=== PATIENT | female | born 1935 | race Caucasian/White ===

== ENCOUNTER 2018-03-09 15:19 | Inpatient (IN) ==
[2018-03-09] MEDS ORDERED: ALBUTEROL 2.5mg/3ml (0.083%) NEB AEROSOL PRN (18:56)
[2018-03-09] MEDS ORDERED: FUROSEMIDE 20 MG/2 ML INJECTION IVP ONE (19:00)
[2018-03-09] MEDS ORDERED: MORPHINE SULFATE 2mg INJECTION IVP PRN (19:00)
--- NOTE | 2018-03-09 19:12 | History & Physical Report ---
History of Present Illness Date: 03/09/18 (PCP: Dr. Aster Batres) Chief complaint: Fall, Back pain HPI: Tiffanie is a frail, 82-year-old female who presents today and direct admission from [facility] in [place]. Within the last 6 weeks, she has undergone imaging which did reveal extensive lymphadenopathy and diffuse masses concerning for possible lymphoma. She was referred to Dr. Solis for further evaluation. She underwent biopsy by Dr. Goldsmith at [facility] of an abdominal mass and 03/02/2018. 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 Flow cytometry was negative for lymphoma, but final staining remains pending. Again, patient is here today to be admitted. She reports that she was attempting to change the toilet paper roll at home, and fell off of the toilet. He did hit her head, and her low back. Her was present, and called the daughter to come and help her up. Upon responding, the daughter did decide to call EMS, and she was taken to [facility] in [place] for further evaluation. Lab and CT of the head was done. CT was negative. I do not have labs available to me. Patient does demonstrate ongoing shortness of air, intra-abdominal distention, and overall not doing well. Again, she has been transferred for further evaluation and specialist consultation. Patient reports that overall she has not been feeling well. She has had progressive dyspnea, and her reports that she had severe difficulty breathing last night. She has been using nebulizer treatments more frequently to try to help with her shortness of air. She has had ongoing abdominal swelling. Some intermittent lower extremity edema. She appears fairly cachectic , but her daughter reports that she gained weight in December. Patient has not been eating much, reports eating primarily some mashed potatoes or other small amounts of food. She does endorse a decreased appetite, early satiety, and frequent nausea. She does not specifically endorse vomiting. She does have dysphagia, with feelings of food being stuck immediately in her throat. She also is having difficulty with pill dysphagia, but attributes this to "runs in my family". She denies any history of coronary artery disease or heart failure. She has had multiple surgeries and medical conditions which will be detailed in history of present illness. I did discuss with her her CODE STATUS today. She desires to be a full code. Her and daughter are at bedside, and she and the family reports they believe she may have a DURABLE POWER OF CLASSROOM INSTRUCTOR. I have encouraged her to be sure that she is established that the paperwork has not been done to that effect. Patient is somewhat reluctant, and states "I have always been told that the bad idea". I did discuss the significance of DPOA and that it would only be enacted if she was unable to make her own decisions. I strongly encouraged her, and her family, once again to consider establishing a DURABLE POWER OF CLASSROOM INSTRUCTOR for the patient while she is here. She does indicate that she would like her and her daughter to make decisions for her if she were unable to speak for herself. Review of Systems All systems PM: 10-point ROS was reviewed, no additional remarkable complaints except - Constitutional Constitutional: Present: anorexia, fatigue, malaise, weakness, weight gain. Absent: fever(s), increased appetite - EENMT Mouth/Throat: Present: changes in swallowing - Cardiovascular Cardiovascular: Present: dyspnea on exertion, orthopnea, edema. Absent: chest pain, palpitations Vascular: Present: pedal edema - Respiratory Respiratory: Present: cough, dyspnea, dyspnea on exertion, wheezing, chest congestion - Gastrointestinal Gastrointestinal: Present: abdominal pain, dyspepsia, dysphagia, early satiety, nausea - Musculoskeletal Musculoskeletal: Present: back pain (lumbar back from fall), muscle weakness, myalgias - Neurological Neurological: Present: weakness - Psychiatric Psychiatric: Present: anxiety Past Medical History Medical History Updates: GERD. Hiatal hernia. 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 Low thyroid. Osteoporosis. Arthritis, unspecified. Left lower extremity DVT 15-16 years ago. Inoperable large hiatal hernia. Right spigelian hernia and ventral incisional hernia. Diverticulitis. Multiple negative breast biopsies Surgical History: Cholecystectomy. Sinus surgery. Hysterectomy. Bowel resection, with 21 inches of bowel removal due to diverticulitis. Hernia repair 2011 with mesh placement. Bilateral eyelid resection 2012 Family History: Sr. BRCA Brother liver transplant 2 due to primary liver failure Cousin with similar liver dysfunction Father due to traumatic injury from a fall Mother heart failure Family History: As Above - Social History Smoking status: Never smoker Substance use type: does not use Alcohol intake frequency: does not drink Housing: house Household members: spouse Current occupational status: retired Current residence: Apartment/Private Home Medications Home Medications Medication Instructions Recorded Confirmed Type Albuterol HFA Inhaler [Ventolin 2 puff INH Q6H 03/09/18 03/09/18 History Hfa 90 mcg/actuation] Albuterol Neb (0.083%) [Proventil 1 vial IH Q4-6HPRN PRN 03/09/18 03/09/18 History Neb (0.083%)] Atenolol [Tenormin] 1 tab PO DAILY 03/09/18 03/09/18 History Furosemide [Lasix] 40 mg PO BID 03/09/18 03/09/18 History Gabapentin 300 mg PO QID 03/09/18 03/09/18 History Levothyroxine Tab [Synthroid] 1 tab PO DAILY 03/09/18 03/09/18 History Lovastatin 20 mg PO HS 03/09/18 03/09/18 History Pantoprazole Sodium [Protonix] 1 tab PO ACB 03/09/18 03/09/18 History Potassium Chloride 20 meq PO TID 03/09/18 03/09/18 History Promethazine HCl 25 mg PO Q6H PRN 03/09/18 03/09/18 History Tramadol HCl [Ultram] 50 - 100 mg PO TID PRN 03/09/18 03/09/18 History Warfarin Sodium [Coumadin] 3 mg PO DAILY 03/09/18 03/09/18 History Allergies Allergy/AdvReac Type Severity Reaction Status Date / Time omeprazole Allergy Mild skin rash Verified 03/09/18 19:17 to face polymyxin B Allergy Mild swelling Verified 03/09/18 19:17 to eye Aminoglycosides Allergy Verified 03/09/18 17:31 Anesthetics - Amide Type Allergy Verified 03/09/18 17:31 atorvastatin [From Lipitor] Allergy Verified 03/09/18 17:31 colistin Allergy Verified 03/09/18 17:31 flurbiprofen Allergy Verified 03/09/18 17:31 ondansetron [From Zofran] Allergy Respiratory Verified 03/09/18 17:48 Depression Progestins Allergy Verified 03/09/18 17:31 Proton Pump Inhibitors Allergy Unverified 03/09/18 19:17 salicylates Allergy Unverified 03/09/18 19:17 Hdgfxiu-Eqf-Buj Reductase Allergy Unverified 03/09/18 19:17 Inhibitor tobramycin Allergy Unverified 03/09/18 19:17 trimethoprim Allergy Unverified 03/09/18 19:17 valsartan Allergy passed out Verified 03/09/18 19:17 ARB-Angiotensin Receptor AdvReac Severe passed out Verified 03/09/18 18:50 Antagonist Estrogens AdvReac Severe BLOOD CLOTS Verified 03/09/18 17:31 estrogens, conjugated AdvReac Severe blood clot Verified 03/09/18 19:17 [From Prempro] medroxyprogesterone AdvReac Severe Anorexia Verified 03/09/18 19:17 [From Prempro] lidocaine AdvReac Mild Verified 03/09/18 18:48 NSAIDS (Non-Steroidal AdvReac conflict Verified 03/09/18 19:17 Anti-Inflamma with other meds Opioids-Meperidine and AdvReac Nausea Verified 03/09/18 19:17 Related fentanyl transdermal patch Allergy Uncoded 03/09/18 17:31 polymyxins Allergy Uncoded 03/09/18 17:31 Exam Vital Signs: Temperature 99.3 F 03/09/18 16:49 Pulse Rate 90 03/09/18 18:17 Respiratory Rate 18 03/09/18 16:49 Blood Pressure 145/66 H 03/09/18 16:49 Pulse Oximetry 93 03/09/18 16:49 Telemetry Rhythm: Sinus Rhythm Height/Weight/BMI: Height 1.63 m Weight 73 kg Body Mass Index 27.6 Comments: Gen.: Patient appears chronically ill. She is generally thin with central ascites. She is moderately short of air at rest. Skin is sallow and pale. Head: Atraumatic. I do not appreciate any masses or lesions. Eyes: No scleral icterus. Pupils are reactive. No periorbital bruising. ENT oral mucosa is dry. Neck: Supple. Right carotid fullness. Cardiovascular: S1, S2. Regular rate and rhythm. Rate is controlled. Feet are cool to touch. Pulses are faintly palpable. O2 sats are 98% on room air. Heart rate is controlled in the 90s. Pulmonary: Significantly diminished in the right lung field. Good air flow left lung medellin. Moderate short of air at rest. No crackles or wheezes. Abdomen: Positive anasarca. She does have a palpable right abdominal mass versus hernia. Bowel sounds are very quiet 4 quadrants. Grossly nontender to palpation. Back: Palpated along her spine, there is no paraspinous tenderness, no muscular tension appreciated. She does seem to have some mild scoliosis. deferred Extremities: Hands and feet are cool. She does have good capillary refill. Faint pedal pulses. No mottling is appreciated. Neuro: Grossly intact as tested. She is awake and alert. Psychiatry: Patient is anxious. Results - Labs CBC & Chem 7: 03/09/18 19:19 03/09/18 19:19 Labs: Labs were not available from outlying facility. - Impressions CT abdomen pelvis without contrast 02/11/2018 1. small right pleural effusion and pleural masses within the right lower chest 2. Adenopathy demonstrated within the chest at right cardiophrenic angle within the pericardial fat 3. Large hiatal hernia 4. Adenopathy demonstrated within the mesentery, left external iliac region, left common femoral region, and possibly within hernia adjacent to the bowel in the right lateral pelvis 5. Minimal ascites 6. 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 Flow cytometry is negative for lymphoma. 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 Will assess labs now, as we do not have those performed at outlying facility available. Also assess troponin, BNP now as patient is short of air and demonstrating significant anxiety despite normal O2 sats. Get CT chest abdomen and pelvis due to known malignancy and concern for rapid progression. Will avoid contrast due to underlying chronic kidney disease. Consult Dr. Aceves in the morning for further evaluation as Dr. Solis is out of town. Check CEA now, LDH for baseline. Get EKG. Telemetry. Check Echo in AM. We'll provide Lasix 40 mg IV 1 now. Hold further diuresis until we get labs back. Suspect that she will need ongoing significant IV diuresis due to the significance of anasarca. She is quite short of air, and is asking for oxygen. I do suspect she has significant underlying pleural effusion. Discussed this with nursing staff, will allow oxygen to be given for symptomatic relief. She is quite malnourished. She has been made nothing by mouth tonight until we get her CT scan back. Likely need to add nutritional supplements to help augment her oral intake. Malnutrition is likely worsening her generalized ascites and 3rd spacing. Will provide when necessary Compazine, and she is listing allergy to Zofran. She reports prior history of left lower extremity DVT, and has been on warfarin since then. Unclear if she was tested for clotting disorder, or if this was was provoked or recurrent. We'll check INR now, and further address her warfarin needs in the morning. Hold Warfarin this evening due to fall. CT of the head done in [place] was negative for acute intracranial hemorrhage. Continue PPI for history of GERD, large hiatal hernia. Progressive dysphasia is concerning for increasing hiatal lymphadenopathy. I did discuss code status and DPOA with her. We will need to follow up on this, as I suspect her prognosis is very guarded. D/W nursing staff, Dr. Gomez. Jason Initially planned OBS status, but with extensive anasarca from underlying cancer coupled with DARY/Hyperkalemia and dyspnea/effusion will change to inpatient. Anticipate greater than 2 midnights of care needed. DVT Prophylaxis: SCD's, Coumadin GI Prophylaxis: Protonix Resuscitation Status: Full Code - Time spent with patient Time with patient PN: 70 minutes - Physician Narrative Physician: Sergio Gomez MD Narrative: Date: 03/09/18 Time: 2143 Have independently interviewed and examined pt. Chart reviewed. Case discussed with outlying ED provide and my [employer]IE[employer]SHAL. Care plan developed with my supervision; agree with above. Presents to ED in [place] secondary to fall. Progressively more weak/ debilitated. Oral drive decreased. Increased difficulty swallowing. More SOA with activities. Increased abdominal girth. Recently undergone evaluation of ab mass - not gotten full results back. Complete ROS not able to be done by myself at this time as patient feeling to weak, discomfortable, and voice too weak to talk. Did not allow for further conversation. Lungs: decreased bilaterally CV: regular MSE: awake alert Gen: looks weak and uncomfortabl Plan: Initially planned OBS status, but with extensive anasarca from underlying cancer coupled with DARY/Hyperkalemia and dyspnea/effusion will change to inpatient. Anticipate greater than 2 midnights of care needed. Check CT, concern of possible bowel obstruction secondary to mass. Will consult with ONC for further evaluation/treatment options. Consult with Dr Mckinney - possible EGD secondary to swallow dysfunction. Hold on Coumadin due to potential need for surgical intervention. SCD for DVT prevention. IV Lasix to help with wasting potassium and excess fluid. Hospital Course Summary Disclaimer: The visit summary below is not to be considered part of the above Progress Note. Hospital Course: 03/09/18 Initially planned OBS status, but with extensive anasarca from underlying cancer coupled with DARY/Hyperkalemia and dyspnea/effusion will change to inpatient. Anticipate greater than 2 midnights of care needed. Will assess labs now, as we do not have those performed at outlying facility available. Also assess troponin, BNP now as patient is short of air and demonstrating significant anxiety despite normal O2 sats. Get CT chest abdomen and pelvis due to known malignancy and concern for rapid progression. Will avoid contrast due to underlying chronic kidney disease. Consult Dr. Aceves in the morning for further evaluation as Dr. Solis is out of town. Check CEA now, LDH for baseline. Get EKG. Telemetry. Check Echo in AM. We'll provide Lasix 40 mg IV 1 now. Hold further diuresis until we get labs back. Suspect that she will need ongoing significant IV diuresis due to the significance of anasarca. She is quite short of air, and is asking for oxygen. I do suspect she has significant underlying pleural effusion. Discussed this with nursing staff, will allow oxygen to be given for symptomatic relief. She is quite malnourished. She has been made nothing by mouth tonight until we get her CT scan back. Likely need to add nutritional supplements to help augment her oral intake. Malnutrition is likely worsening her generalized ascites and 3rd spacing. Will provide when necessary Compazine, and she is listing allergy to Zofran. She reports prior history of left lower extremity DVT, and has been on warfarin since then. Unclear if she was tested for clotting disorder, or if this was was provoked or recurrent. We'll check INR now, and further address her warfarin needs in the morning. Hold Warfarin this evening due to fall. CT of the head done in [place] was negative for acute intracranial hemorrhage. Continue PPI for history of GERD, large hiatal hernia. Progressive dysphasia is concerning for increasing hiatal lymphadenopathy. I did discuss code status and DPOA with her. We will need to follow up on this, as I suspect her prognosis is very guarded. Care to return to Dr Batres at time of discharge from [facility].
[2018-03-09] MEDS: PROCHLORPERAZINE 10 MG/2 ML INJECTION IVP PRN (19:43)
[2018-03-09] MEDS: D5-1/2NS 1,000 ML IV SCH (21:01)
[2018-03-09] MEDS: GABAPENTIN 300 MG CAPSULE PO SCH (21:02)
[2018-03-09] MEDS: TRAMADOL 50 MG TABLET PO PRN (21:06)
[2018-03-10] MEDS: TRAMADOL 50 MG TABLET PO PRN ×4 (01:13→23:10)
[2018-03-10] MEDS: FUROSEMIDE 20 MG/2 ML INJECTION IVP SCH ×3 (01:13→18:13)
[2018-03-10] MEDS: PANTOPRAZOLE 40 MG TABLET PO SCH (06:36)
[2018-03-10] MEDS: D5-1/2NS 1,000 ML IV SCH (06:36)
[2018-03-10] MEDS: LEVOTHYROXINE 100 MCG TABLET PO SCH (06:38)
--- NOTE | 2018-03-10 08:15 | General Surgery Consult Note ---
<Marcela Garrett Evgeny - Last Filed: 03/10/18 09:28> Consult date: 03/10/18 Attending Physician: Sergio Gomez MD [facility] Patient Stated Medical History Hypertension Yes Chronic Obstructive Pulmonary Yes Disease (COPD) Other GI Yes: CONSTIPATION, CLUSTER OF CELLS RLQ Hx Renal Disease Yes Osteoarthritis Yes Medications Home Medications Medication Instructions Recorded Confirmed Type Albuterol HFA Inhaler [Ventolin 2 puff INH Q6H 03/09/18 03/09/18 History Hfa 90 mcg/actuation] Albuterol Neb (0.083%) [Proventil 1 vial IH Q4-6HPRN PRN 03/09/18 03/09/18 History Neb (0.083%)] Atenolol [Tenormin] 1 tab PO DAILY 03/09/18 03/09/18 History Furosemide [Lasix] 40 mg PO BID 03/09/18 03/09/18 History Gabapentin 300 mg PO QID 03/09/18 03/09/18 History Levothyroxine Tab [Synthroid] 1 tab PO DAILY 03/09/18 03/09/18 History Lovastatin 20 mg PO HS 03/09/18 03/09/18 History Pantoprazole Sodium [Protonix] 1 tab PO ACB 03/09/18 03/09/18 History Potassium Chloride 20 meq PO TID 03/09/18 03/09/18 History Promethazine HCl 25 mg PO Q6H PRN 03/09/18 03/09/18 History Tramadol HCl [Ultram] 50 - 100 mg PO TID PRN 03/09/18 03/09/18 History Warfarin Sodium [Coumadin] 3 mg PO DAILY 03/09/18 03/09/18 History Allergies Allergy/AdvReac Type Severity Reaction Status Date / Time omeprazole Allergy Mild skin rash Verified 03/09/18 19:17 to face polymyxin B Allergy Mild swelling Verified 03/09/18 19:17 to eye Aminoglycosides Allergy Verified 03/09/18 17:31 Anesthetics - Amide Type Allergy Verified 03/09/18 17:31 atorvastatin [From Lipitor] Allergy Verified 03/09/18 17:31 colistin Allergy Verified 03/09/18 17:31 flurbiprofen Allergy Verified 03/09/18 17:31 ondansetron [From Zofran] Allergy Respiratory Verified 03/09/18 17:48 Depression Progestins Allergy Verified 03/09/18 17:31 Proton Pump Inhibitors Allergy Unverified 03/09/18 19:17 salicylates Allergy Unverified 03/09/18 19:17 Mswtncb-Xmc-Ybh Reductase Allergy Unverified 03/09/18 19:17 Inhibitor tobramycin Allergy Unverified 03/09/18 19:17 trimethoprim Allergy Unverified 03/09/18 19:17 valsartan Allergy passed out Verified 03/09/18 19:17 ARB-Angiotensin Receptor AdvReac Severe passed out Verified 03/09/18 18:50 Antagonist Estrogens AdvReac Severe BLOOD CLOTS Verified 03/09/18 17:31 estrogens, conjugated AdvReac Severe blood clot Verified 03/09/18 19:17 [From Prempro] medroxyprogesterone AdvReac Severe Anorexia Verified 03/09/18 19:17 [From Prempro] lidocaine AdvReac Mild Verified 03/09/18 18:48 NSAIDS (Non-Steroidal AdvReac conflict Verified 03/09/18 19:17 Anti-Inflamma with other meds Opioids-Meperidine and AdvReac Nausea Verified 03/09/18 19:17 Related fentanyl transdermal patch Allergy Uncoded 03/09/18 17:31 polymyxins Allergy Uncoded 03/09/18 17:31 - Vital Signs Last Vital Signs Temp 98.8 F 03/10/18 07:59 Pulse 96 03/10/18 07:59 Resp 18 03/10/18 04:23 BP 129/51 03/10/18 07:59 Pulse Ox 98 03/10/18 07:59 - Laboratory Result Diagrams: 03/10/18 03:59 03/10/18 03:59 General Surgery Results - Results Labs: 03/10/18 03:59 03/10/18 03:59 <Geri North - Last Filed: 03/10/18 14:51> Consult date: 03/10/18 Attending Physician: Sergio Gomez MD [facility] Patient Stated Medical History Hypertension Yes Chronic Obstructive Pulmonary Yes Disease (COPD) Other GI Yes: CONSTIPATION, CLUSTER OF CELLS RLQ Hx Renal Disease Yes Osteoarthritis Yes Medical History Updates: GERD. Hiatal hernia. 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 Low thyroid. Osteoporosis. Arthritis, unspecified. Left lower extremity DVT 15-16 years ago. Inoperable large hiatal hernia. Right spigelian hernia and ventral incisional hernia. Diverticulitis. Multiple negative breast biopsies Surgical History: Cholecystectomy. Sinus surgery. Hysterectomy. Sigmoid colectomy with incidental appendectomy 12/10/04 due to chronic sigmoid diverticulitis, with 30cm of bowel removed. Pathology showed small hyperplastic polyp and tubular adenoma. Colonoscopy 03/06/03 showing moderate sigmoid diverticulosis and scattered colonic diverticula. EGD 12/03/09 showing hiatal hernia and hyperplastic gastric polyp. Hernia repair 2011 with mesh placement. Bilateral eyelid resection 2012 Family History Updates: family history not obtainable - Social History Smoking status: Never smoker Substance use type: does not use Alcohol intake frequency: does not drink Housing: house Household members: spouse Current occupational status: retired Current residence: Apartment/Private Home Review of Systems 10-point ROS: negative except for HPI and the following: - General Additional Comments: Denies fever, sweats, chills - Eyes/Ears/Nose/Throat Additional comments: denies blurry vision - Cardiovascular Additional comments: Denies chest pain - Respiratory Respiratory: Present: difficulty breathing, cough - Gastrointestinal Gastrointestinal: Present: nausea, diarrhea, constipation Additional comments: reports decreased appetite, dysphagia, GERD denies abdominal pain, vomiting - Genitourinary Additional comments: denies dysuria - Musculoskeletal Musculoskeletal: Present: back pain (low) - Neurological Neurological: Present: muscle weakness Additional comments: denies HERNANDEZ - Hematologic/Lymphatic Hematologic/Lymphatic: Present: history of blood clots/DVT/PE - Vital Signs Last Vital Signs Temp 98.8 F 03/10/18 07:59 Pulse 96 03/10/18 07:59 Resp 18 03/10/18 04:23 BP 129/51 03/10/18 07:59 Pulse Ox 98 03/10/18 07:59 - Laboratory Result Diagrams: 03/10/18 03:59 03/10/18 03:59 General Surgery Results - Results Labs: 03/10/18 03:59 03/10/18 03:59 Additional studies: Echo 03/10/18 report pending
--- NOTE | 2018-03-10 08:27 | CT Scan Report ---
Indication: Malignancy, SOA PROCEDURE: CT chest/abd/pelvis wo con: Encounter: Subsequent Comparison: Outside CT abdomen and pelvis dated February 11, 2018 Technique: Axial CT images were performed through the chest, abdomen and pelvis without intravenous contrast. Coronal and sagittal two-dimensional reformats. Automated Exposure Control and Iterative Reconstruction dose reducing techniques were utilized. Findings: Chest: Moderate right pleural effusion with compressive atelectasis of the right lower lobe. 4 mm right upper lobe nodule on #18 is noncalcified. Calcified granuloma in the right middle lobe. Noncalcified right middle lobe nodule inferiorly on axial image #44 measuring 1 cm in diameter. Nodule near the left heart border in the lingula on axial image number 32 measuring 0.8 cm in diameter. Left lower lobe atelectasis with a small left pleural effusion. No pneumothorax. The central airways are patent. No axillary adenopathy. There is anterior mediastinal adenopathy seen with the largest on axial image #25 measuring 2 cm in short axis. Additional lymph nodes in the right cardiophrenic angle measuring up to 2.8 cm in short axis. Heart size is normal. Large posterior diaphragmatic defect with an intrathoracic stomach. Abdomen/pelvis: Evaluation is limited without IV contrast. There is a small amount of perihepatic ascites. The spleen is normal in size. The pancreas are atrophic and fatty replaced with minimal visible pancreatic tissue. Portions of it are herniated into the chest. Right adrenal mass measuring 3.4 cm in diameter with an attenuation of 38 Hounsfield units. Left adrenal gland is grossly normal. The kidneys are unremarkable. There is extensive mesenteric and omental metastatic disease which is difficult to separate from bowel on this study given the lack of oral and IV contrast. There are clustered nodes adjacent to the pyloric region of the stomach. Central mesenteric nodes measure up to 2.6 cm in short axis on axial image #60. Numerous omental nodules are seen in the left ventral abdomen. Previously biopsied nodule is seen within a fat-containing periumbilical hernia. There is a right lower abdominal hernia which contains portions of the colon and additional abnormal soft tissue probably representing mass measuring up to 8.2 cm in diameter. No evidence of a bowel obstruction. Enlarged left inguinal lymph nodes as well. Bladder is normal. Moderate free pelvic fluid partially obscuring the uterus. Surgical clips in the pelvis with anastomosis in the sigmoid colon region. No bowel obstruction. Bone windows show degenerative change in scoliosis in the spine. No obvious lytic or blastic bony lesions. Impression: 1. Extensive metastatic disease with a possible malignant right pleural effusion. Mediastinal, omental, mesenteric and pelvic jessica metastatic disease. 2. Right adrenal mass possibly representing a metastasis. 3. Ascites There is a preliminary report by [facility]. .
[2018-03-10 08:34] VITALS: BMI 27.8
[2018-03-10] MEDS: GABAPENTIN 300 MG CAPSULE PO SCH ×4 (09:33→20:46)
--- NOTE | 2018-03-10 11:58 | Progress Note ---
- Date 03/10/18 Subjective: Tiffanie is seen today in follow-up. She continues to be quite ill. She has informed surgery and the nursing staff that she is planning to dismissal home today. Unfortunately, she is far too ill to do so. Her chart has been reviewed prior to her visit, she requests that I wait to discuss any results with her daughter. I did let her know that her testing was likely consistent with cancer. We are waiting on oncology consultation for further plan of care. Did not discuss the extensiveness of the CT results, or her current lab, she would prefer to wait until her daughter is here for that discussion. She continues to be quite short of air, which she attributes to her chronic hiatal hernia. She reports that she does not want to work with therapy, as it is uncomfortable for her to sit due to fullness" in her lady parts". She reports that she is not eating much. Continues to have early satiety, sensation of dysphagia, etc. she is wearing her oxygen. She does not feel that dyspnea is much improved overnight. She does not report any other acute complaints. I did discuss with nurse, who reports the patient has been intermittently confused. Objective Vital signs: Temperature 98.8 F 03/10/18 07:59 Pulse Rate 96 03/10/18 07:59 Respiratory Rate 18 03/10/18 04:23 Blood Pressure 129/51 03/10/18 07:59 Pulse Oximetry 98 03/10/18 07:59 Height/Weight/BMI: Height 1.63 m Weight 73.4 kg Body Mass Index 27.8 Comments: Gen.: Patient is sleepy, but easily arousable. She does participate in conversation. Drifts off to sleep during our visit today. She is pale with generalized muscle wasting. She continues to appear very ill. Neck: Supple. Cardiovascular: S1, S2. Regular rate and rhythm. Heart tones are mildly diminished. Ongoing abdominal ascites. Minimal lower extremity edema. Pulmonary: Very diminished bilaterally, worse on the right. Faint occasional crackles on the right. Mild to moderate short of air rest, appears stable from yesterday. Abdomen: Distended, soft. Not overtly tender. Palpable mass on the right. Hypoactive bowel sounds 4 quadrants. Extremities: Trace lower extremity edema. Extremities are mildly cool. Back: Patient continues to complain of some low back discomfort. I did not attempt to examine today due to patient's fatigue. Results - Labs CBC & Chem 7: 03/10/18 03:59 03/10/18 03:59 - Impressions ct Impression: 1. Extensive metastatic disease with a possible malignant right pleural effusion. Mediastinal, omental, mesenteric and pelvic jessica metastatic disease. 2. Right adrenal mass possibly representing a metastasis. 3. Ascites There is a preliminary report by [facility]. . 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 Likely GI source. CEA is elevated, LDH is quite elevated. Consult to Dr. Aceves pending. Patient does endorse a history of hysterectomy, but ovaries were left intact. She also endorses a sense of fullness with sitting, unclear if that is mass related or due to ascites. Echo is pending for possible heart failure. Severe malnutrition coupled with intra-abdominal malignancy is also underlying source for ascites. Bilateral pleural effusions ongoing. We could consider a therapeutic tap for comfort if needed. Continue supportive oxygen. Serum potassium is improving, serum creatinine is trending down. Urban was placed due to patient's difficulty and using bedside commode and bedpan. Decrease IV fluids. Continue diuresis to help continue to normalize potassium as well as creatinine. We'll continue to hold warfarin for now telemetry can further determine a plan of care. Use SCDs for DVT prophylaxis. There is concern for possible gastric outlet obstruction, she has a known very large hiatal hernia. Continue PPI. Dr. Jonas has been consulted. Patient may need EGD for further diagnosis. Will be high risk for any sedated procedure. Overall she, she continues to appear very ill. I believe her overall prognosis is likely very grave. She remains a full code at her request. I have encouraged her to establish a medical [employer]. Don't believe that she could safely return home. Her is very frail and elderly, and could not care for her at home. We'll further address when we have a more determine plan of care. DVT Prophylaxis: SCD's GI Prophylaxis: Protonix Resuscitation Status: Full Code - Time spent with patient Time with patient PN: 35 minutes - Physician Narrative Physician: Sergio Gomez MD Narrative: Date: 03/10/18 Time: 1500 Have independently interviewed and examined pt. Chart reviewed. Case discussed with CM, Dr Jonas, Dr Aceves, and my HEALTH INSURANCE AGENT. Care plan developed with my supervision; agree with above. Still feels very rough-tired, weak. Hard to breath. Hard to eat. Does report MS helping her pain. Family at bedside and Dx of extensive cancer given. Pt unsure about how to proceed-reports 'having a hard time thinking logically about this. ' Lungs: decreased, shallow breathing CV: regular AB: soft BS decreased Gen: looks very tired/weak Plan: Discussed with patient/family about findings of extensive cancer. Not seeing much ascitics on CT - family surprised as patient having increased abdominal girth--likely secondary to extensive tumor burden. Does have increasing right pleural effusion (reviewed current and prior CT with Dr Aceves) . Discussed with family that this is from her cancerous process. Discussed how thoracentesis may be helpful in decreasing work of breathing (but not a curative process as effusion would recur). Did review risk vs benefits vs alternatives to thoracentesis. Also discussed possibility of PleurX cath placement. Not able to proceed with either procedure currently as INR 2.01 (2.1 on admit, Coumadin on hold). Pt unable to make decision about this procedure currently-advised decision does not need to be made right now, and can further discuss with family about her wishes. Will give Vit K to help lower INR incase patient would want thoracentesis. Discussed with patient and family that with her extensive cancer burden, cure is not possible. Advised there may be 'palliative' treatments that could potentially slow disease process - in discussion with Dr Aceves, he does not feel overtly optimistic about likelihood of benefit of these modalities. Full discussion on this topic deferred to Dr Parrish. Patient feels MS helpful-advised can increase dose if needed; do want to maintain comfort best as possible. Will add prn lorazepam 0.5mg IV. Discussed about benefits of hospice care. Patient/Family have significant decisions to make. Know will take time for them to process all the information. Hospital Course Summary Disclaimer: The visit summary below is not to be considered part of the above Progress Note. 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 Anticipate greater than 2 midnights of care needed. Will assess labs now, as we do not have those performed at outlying facility available. Also assess troponin, BNP now as patient is short of air and demonstrating significant anxiety despite normal O2 sats. Get CT chest abdomen and pelvis due to known malignancy and concern for rapid progression. Will avoid contrast due to underlying chronic kidney disease. Consult Dr. Aceves in the morning for further evaluation as Dr. Solis is out of town. Check CEA now, LDH for baseline. Get EKG. Telemetry. Check Echo in AM. We'll provide Lasix 40 mg IV 1 now. Hold further diuresis until we get labs back. Suspect that she will need ongoing significant IV diuresis due to the significance of anasarca. She is quite short of air, and is asking for oxygen. I do suspect she has significant underlying pleural effusion. Discussed this with nursing staff, will allow oxygen to be given for symptomatic relief. She is quite malnourished. She has been made nothing by mouth tonight until we get her CT scan back. Likely need to add nutritional supplements to help augment her oral intake. Malnutrition is likely worsening her generalized ascites and 3rd spacing. Will provide when necessary Compazine, and she is listing allergy to Zofran. She reports prior history of left lower extremity DVT, and has been on warfarin since then. Unclear if she was tested for clotting disorder, or if this was was provoked or recurrent. We'll check INR now, and further address her warfarin needs in the morning. Hold Warfarin this evening due to fall and possible surgical procedures. CT of the head done in [place] was negative for acute intracranial hemorrhage. Continue PPI for history of GERD, large hiatal hernia. Progressive dysphasia is concerning for increasing hiatal lymphadenopathy. I did discuss code status and DPOA with her. We will need to follow up on this, as I suspect her prognosis is very guarded. Care to return to Dr Powell at [place] of [place] [facility] [place] 03/10/18 CT obtained yesterday is very concerning for diffuse malignancy. Likely GI source. CEA is elevated, LDH is quite elevated. Consult to Dr. Aceves pending. Only treatment would likely be palliative, and uncertain if even that would be helpful given extensive abdominal tumor burden. Patient does endorse a history of hyst, but ovaries were left intact. She also has sense of fullness with sitting, unclear if that is mass related or due to ascites. Echo is pending for possible heart failure. Severe malnutrition coupled with intra-abdominal malignancy is also underlying source for ascites. Bilateral pleural effusions ongoing. We could consider a therapeutic tap for comfort if needed. Continue supportive oxygen. Serum potassium is improving, serum creatinine is trending down. Urban was placed due to patient's difficulty and using bedside commode and bedpan. Will stop IVF. Continue diuresis to help continue to normalize potassium as well as creatinine. We'll continue to hold warfarin for now telemetry can further determine a plan of care. Use SCDs for DVT prophylaxis. Vitamin K 10mg X1 to low INR due to potential thoracentesis. There is concern for possible gastric outlet obstruction, she has a known very large hiatal hernia. Continue PPI. Dr. Jonas has been consulted. Patient may need EGD for further diagnosis. Will be high risk for any sedated procedure. Discussed about possible thoracentesis for therapeutic purposes. Continue with MS as needed for pain. Will add lorazepam as needed. Overall she, she continues to appear very ill. I believe her overall prognosis is likely very grave. She remains a full code at her request. Have encouraged her to establish a medical [employer]. Don't believe that she could safely return home. Her is very frail and elderly, and could not care for her at home. We'll further address when we have a more determine plan of care.
[2018-03-10] MEDS: MORPHINE SULFATE 4mg INJECTION IVP PRN ×2 (12:55→20:46)
--- NOTE | 2018-03-10 13:45 | Consult Note ---
<Nanda Hernandez - Last Filed: 03/10/18 15:06> Oncology HPI - Data of Consult Patient: new to practice Consult date: 03/10/18 Requesting Physician: Sergio Gomez MD Primary Care Provider: Aster Batres MD - Consult Narrative Reason for consult: ? bowel obstruction secondary to mass History of present illness: 82-year-old female with new onset lymphadenopathy, abdominal pain, decreased appetite was seen by Dr. Solis as new patient 02/16/18. Extensive lymphadenopathy noted, highly suggestive of lymphoma. Was receommended to have a biopsy; superficial mesenteric lymph node biopsy 03/02/18. At time of admission to [facility] we were awaiting results of biopsy. Patient continued to have increased weakness and suffered a fall at home where she hit her head. She was taken to [facility] in [place] for further evaluation, CT of the head was negative for acute findings. With generalized weakness, increased dyspnea and shortness of air, patient was admitted to [facility], then transferred to [facility] for continued care/ further evaluation/workup of likely metastatic disease. At time of intake, patient is reclining in hospital bed, is at bedside. Had recently spoken to Dr. Aceves and was given the preliminary diagnosis of extensive metastatic carcinoma; further testing is pending to determine origin. Patient drowsy/had recently taken morphine for abd. pain. Continues to have intermittent SOA, chest tightness, abdominal/chest wall pain. Poor appetite. Review of Systems - Constitutional Constitutional: Present: fatigue, malaise, weakness - EENT Eyes: Absent: diplopia Mouth/Throat: Present: changes in swallowing - Cardiovascular Cardiovascular: Present: dyspnea on exertion - Respiratory Respiratory: Present: cough, dyspnea, dyspnea on exertion - Gastrointestinal Gastrointestinal: Present: early satiety, nausea - Genitourinary Genitourinary: Present: other (sumner) - Musculoskeletal Musculoskeletal: Present: back pain, muscle weakness, other (chronic arthritic pain) - Neurological Neurological: Present: weakness. Absent: confusion - Psychiatric Psychiatric: Absent: anxiety, depression - Endocrine Endocrine: Absent: cold intolerance, flushing, heat intolerance PFSH Patient Stated Medical History Hypertension Yes Chronic Obstructive Pulmonary Yes Disease (COPD) Other GI Yes: CONSTIPATION, CLUSTER OF CELLS RLQ Hx Renal Disease Yes Osteoarthritis Yes Medical History Updates: GERD. Hiatal hernia. Chronic kidney disease, monogram maker:none. Low thyroid. Osteoporosis. Arthritis, unspecified. Left lower extremity DVT 15-16 years ago. Inoperable large hiatal hernia. Right spigelian hernia and ventral incisional hernia. Diverticulitis. Multiple negative breast biopsies Surgical History: Cholecystectomy. Sinus surgery. Hysterectomy. Sigmoid colectomy with incidental appendectomy 12/10/04 due to chronic sigmoid diverticulitis, with 30cm of bowel removed. Pathology showed small hyperplastic polyp and tubular adenoma. Colonoscopy 03/06/03 showing moderate sigmoid diverticulosis and scattered colonic diverticula. EGD 12/03/09 showing hiatal hernia and hyperplastic gastric polyp. Hernia repair 2011 with mesh placement. Bilateral eyelid resection 2012 - Social History Smoking status: Never smoker Substance use type: does not use Alcohol intake frequency: does not drink Housing: house Household members: spouse Current occupational status: retired Current residence: Apartment/Private Home Medications Home Medications Medication Instructions Recorded Confirmed Type Albuterol HFA Inhaler [Ventolin 2 puff INH Q6H 03/09/18 03/09/18 History Hfa 90 mcg/actuation] Albuterol Neb (0.083%) [Proventil 1 vial IH Q4-6HPRN PRN 03/09/18 03/09/18 History Neb (0.083%)] Atenolol [Tenormin] 1 tab PO DAILY 03/09/18 03/09/18 History Furosemide [Lasix] 40 mg PO BID 03/09/18 03/09/18 History Gabapentin 300 mg PO QID 03/09/18 03/09/18 History Levothyroxine Tab [Synthroid] 1 tab PO DAILY 03/09/18 03/09/18 History Lovastatin 20 mg PO HS 03/09/18 03/09/18 History Pantoprazole Sodium [Protonix] 1 tab PO ACB 03/09/18 03/09/18 History Potassium Chloride 20 meq PO TID 03/09/18 03/09/18 History Promethazine HCl 25 mg PO Q6H PRN 03/09/18 03/09/18 History Tramadol HCl [Ultram] 50 - 100 mg PO TID PRN 03/09/18 03/09/18 History Warfarin Sodium [Coumadin] 3 mg PO DAILY 06/13/18 06/13/18 History Allergies Allergy/AdvReac Type Severity Reaction Status Date / Time omeprazole Allergy Mild skin rash Verified 03/09/18 19:17 to face polymyxin B Allergy Mild swelling Verified 03/09/18 19:17 to eye Aminoglycosides Allergy Verified 03/09/18 17:31 Anesthetics - Amide Type Allergy Verified 03/09/18 17:31 atorvastatin [From Lipitor] Allergy Verified 03/09/18 17:31 colistin Allergy Verified 03/09/18 17:31 flurbiprofen Allergy Verified 03/09/18 17:31 ondansetron [From Zofran] Allergy Respiratory Verified 03/09/18 17:48 Depression Progestins Allergy Verified 03/09/18 17:31 Proton Pump Inhibitors Allergy Unverified 03/09/18 19:17 salicylates Allergy Unverified 03/09/18 19:17 Thohjnm-Cmh-Akt Reductase Allergy Unverified 03/09/18 19:17 Inhibitor tobramycin Allergy Unverified 03/09/18 19:17 trimethoprim Allergy Unverified 03/09/18 19:17 valsartan Allergy passed out Verified 03/09/18 19:17 ARB-Angiotensin Receptor AdvReac Severe passed out Verified 03/09/18 18:50 Antagonist Estrogens AdvReac Severe BLOOD CLOTS Verified 03/09/18 17:31 estrogens, conjugated AdvReac Severe blood clot Verified 03/09/18 19:17 [From Prempro] medroxyprogesterone AdvReac Severe Anorexia Verified 03/09/18 19:17 [From Prempro] lidocaine AdvReac Mild Verified 03/09/18 18:48 NSAIDS (Non-Steroidal AdvReac conflict Verified 03/09/18 19:17 Anti-Inflamma with other meds Opioids-Meperidine and AdvReac Nausea Verified 03/09/18 19:17 Related fentanyl transdermal patch Allergy Uncoded 03/09/18 17:31 polymyxins Allergy Uncoded 03/09/18 17:31 Exam Vital signs: Temperature 98.1 F 03/10/18 12:00 Pulse Rate 105 H 03/10/18 12:00 Respiratory Rate 18 03/10/18 04:23 Blood Pressure 151/69 H 03/10/18 12:00 Pulse Oximetry 99 03/10/18 12:00 - Constitutional no acute distress, well nourished, well developed, other (appears frail) - Routine HEENT Exam Head: Present: normocephalic Eye: Present: EOMI ENT: Present: mucous membranes dry - Routine Neck Exam Present: supple. Absent: lymphadenopathy - Routine Respiratory Exam Present: decreased breath sounds. Absent: wheezes, crackles - Routine Cardiovascular Exam Present: RRR, no murmur - Routine Abdominal Exam Present: soft, distended. Absent: tenderness - Routine Extremities Exam Present: no edema - Routine Skin Exam Present: intact, dry, pallor - Routine Neurological Exam Present: alert (drowsy) - Routine Psychiatric Exam Present: normal affect, cooperative Oncology Results - Labs CBC & Chem 7: 03/10/18 03:59 03/10/18 03:59 Labs: Short CBC 03/09/18 03/09/18 03/10/18 Range/Units 19:19 23:37 03:59 WBC 10.6 12.2 H (4.5-11.0) T/MM3 Hgb 10.6 L 10.3 L 10.1 L (12-16) GM/DL Hct 33.3 L 32.0 L 32.4 L (36-46) % Plt Count 235 241 (130-400) T/MM3 BMP 03/09/18 03/09/18 03/10/18 19:19 23:37 03:59 Sodium 137 135 L 135 L Potassium 5.6 H 5.1 H 5.0 Chloride 99 97 L 96 L Carbon Dioxide 29 28 28 BUN 42.0 H 44.0 H 43.0 H Creatinine 1.9 H 1.8 H 1.7 H Glucose 85 101 104 Calcium 8.7 8.1 L 8.2 L Cardiac Enzymes 03/09/18 03/09/18 03/10/18 Range/Units 19:19 23:37 03:59 Troponin I < 0.012 < 0.012 < 0.012 (0-0.12) ng/ml Liver Function 03/09/18 03/10/18 Range/Units 19:19 03:59 Total Bilirubin 0.80 0.80 (0.20-1.30) MG/DL AST 91 H 86 H (14-36) U/L ALT 10 9 (1-35) U/L Alkaline Phosphatase 92 82 (38-126) U/L Albumin 3.4 L 3.1 L (3.5-5.0) g/dL Urine 03/09/18 Range/Units 20:15 Urine Color Yellow (YELLOW) Urine Clarity Clear Urine pH 6.5 (5.0-8.0) Ur Specific [place] <=1.005 L (1.015-1.025) Urine Protein Negative (NEGATIVE) Urine Glucose (UA) Negative (NEGATIVE) - Impressions Date of Exam: 03/09/18 Ordering Provider: Angelic Reddy APRN Type of Exam(s): CT chest/abd/pelvis wo con Reason for Exam(s): Malignancy, SOA Indication: Malignancy, SOA PROCEDURE: CT chest/abd/pelvis wo con: Encounter: Subsequent Comparison: Outside CT abdomen and pelvis dated February 11, 2018 Technique: Axial CT images were performed through the chest, abdomen and pelvis without intravenous contrast. Coronal and sagittal two-dimensional reformats. Automated Exposure Control and Iterative Reconstruction dose reducing techniques were utilized. Findings: Chest: Moderate right pleural effusion with compressive atelectasis of the right lower lobe. 4 mm right upper lobe nodule on #18 is noncalcified. Calcified granuloma in the right middle lobe. Noncalcified right middle lobe nodule inferiorly on axial image #44 measuring 1 cm in diameter. Nodule near the left heart border in the lingula on axial image number 32 measuring 0.8 cm in diameter. Left lower lobe atelectasis with a small left pleural effusion. No pneumothorax. The central airways are patent. No axillary adenopathy. There is anterior mediastinal adenopathy seen with the largest on axial image #25 measuring 2 cm in short axis. Additional lymph nodes in the right cardiophrenic angle measuring up to 2.8 cm in short axis. Heart size is normal. Large posterior diaphragmatic defect with an intrathoracic stomach. Abdomen/pelvis: Evaluation is limited without IV contrast. There is a small amount of perihepatic ascites. The spleen is normal in size. The pancreas are atrophic and fatty replaced with minimal visible pancreatic tissue. Portions of it are herniated into the chest. Right adrenal mass measuring 3.4 cm in diameter with an attenuation of 38 Hounsfield units. Left adrenal gland is grossly normal. The kidneys are unremarkable. There is extensive mesenteric and omental metastatic disease which is difficult to separate from bowel on this study given the lack of oral and IV contrast. There are clustered nodes adjacent to the pyloric region of the stomach. Central mesenteric nodes measure up to 2.6 cm in short axis on axial image #60. Numerous omental nodules are seen in the left ventral abdomen. Previously biopsied nodule is seen within a fat-containing periumbilical hernia. There is a right lower abdominal hernia which contains portions of the colon and additional abnormal soft tissue probably representing mass measuring up to 8.2 cm in diameter. No evidence of a bowel obstruction. Enlarged left inguinal lymph nodes as well. Bladder is normal. Moderate free pelvic fluid partially obscuring the uterus. Surgical clips in the pelvis with anastomosis in the sigmoid colon region. No bowel obstruction. Bone windows show degenerative change in scoliosis in the spine. No obvious lytic or blastic bony lesions. Impression: 1. Extensive metastatic disease with a possible malignant right pleural effusion. Mediastinal, omental, mesenteric and pelvic jessica metastatic disease. 2. Right adrenal mass possibly representing a metastasis. 3. Ascites There is a preliminary report by [employer]. . Assessment and Plan Assessment and Plan: 1. Mesenteric lymph node biopsy shows extensive, metastatic, poorly differentiated carcinoma of undetermined origin. CT of chest abdomen pelvis shows extensive metastatic disease with likely malignant pleural effusion, mediastinal, omental, mesenteric, and prep pelvic jessica metastatic disease. Also shows right adrenal mass, likely representing a metastasis. 2. 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 Aceves has briefly visited with patient, , and daughter about diagnosis. Awaiting further tissue and pathologic information for determination of origin and discuss possible treatment options. CEA, CA 199, CA 125, LDH added to today's labs. Continue supportive care. Consideration for thoracentesis. <Manny Aceves - Last Filed: 03/10/18 19:59> Oncology HPI - Data of Consult Requesting Physician: Sergio Gomez MD Primary Care Provider: Aster Batres MD [facility] Patient Stated Medical History Hypertension Yes Chronic Obstructive Pulmonary Yes Disease (COPD) Other GI Yes: CONSTIPATION, CLUSTER OF CELLS RLQ Hx Renal Disease Yes Osteoarthritis Yes Exam Vital signs: Temperature 97.7 F 03/10/18 19:27 Pulse Rate 93 03/10/18 19:27 Respiratory Rate 20 03/10/18 19:27 Blood Pressure 135/59 03/10/18 19:27 Pulse Oximetry 95 03/10/18 19:27 Oncology Results - Labs CBC & Chem 7: 03/10/18 03:59 03/10/18 03:59 Labs: Short CBC 03/09/18 03/10/18 Range/Units 23:37 03:59 WBC 12.2 H (4.5-11.0) T/MM3 Hgb 10.3 L 10.1 L (12-16) GM/DL Hct 32.0 L 32.4 L (36-46) % Plt Count 241 (130-400) T/MM3 BMP 03/09/18 03/10/18 23:37 03:59 Sodium 135 L 135 L Potassium 5.1 H 5.0 Chloride 97 L 96 L Carbon Dioxide 28 28 BUN 44.0 H 43.0 H Creatinine 1.8 H 1.7 H Glucose 101 104 Calcium 8.1 L 8.2 L Cardiac Enzymes 03/09/18 03/10/18 Range/Units 23:37 03:59 Troponin I < 0.012 < 0.012 (0-0.12) ng/ml Liver Function 03/10/18 Range/Units 03:59 Total Bilirubin 0.80 (0.20-1.30) MG/DL AST 86 H (14-36) U/L ALT 9 (1-35) U/L Alkaline Phosphatase 82 (38-126) U/L Albumin 3.1 L (3.5-5.0) g/dL Urine 03/09/18 Range/Units 20:15 Urine Color Yellow (YELLOW) Urine Clarity Clear Urine pH 6.5 (5.0-8.0) Ur Specific [place] <=1.005 L (1.015-1.025) Urine Protein Negative (NEGATIVE) Urine Glucose (UA) Negative (NEGATIVE) Assessment and Plan Assessment and Plan: Patient examined, chart reviewed, reviewed pathology with patient, , daughter. LDH markedly elevated. CT scans reviewed and show extensive lymphadenopathy and metastatic disease. This is a stage for malignancy and a poor performance status patient. 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 Responsiveness of this to chemotherapy is in the 30% range. But with her performance status I feel that treatment would be very difficult and not be successful. Discussed these findings with the patient's and daughter. Discussed resuscitation status and asked that they continue to discuss these items with Dr. Gomez. Consider thoracentesis for palliation of symptoms will continue to follow patient with you
[2018-03-10] MEDS ORDERED: PHYTONADIONE (Adult) INJ 10 MG in NS 50 ML IV ONE (14:56)
--- NOTE | 2018-03-10 17:57 | Consultation ---
DATE OF SERVICE 03/10/2018 FINDINGS Mrs. Mayberry is an 82-year-old female whom I was asked to see today as a result of an abnormal CT scan, history for widely metastatic cancer, right pleural effusion. Fortunately, the patient's daughter and came to the room at the end of the examination process and were able to provide more additional information. Mrs. Mayberry has been declining in her overall health for the last year or more per the daughter's report. They have in the past contributed this to her "hiatal hernia." Apparently she has been having some problems with eating and abdominal discomfort for an extended period of time. The family has contributed this to a hiatal hernia. Daughter states that the patient continues to decline and has been requiring definitely more assistance at home. Daughter states that she spends the majority of time at her parents' home providing care. Apparently the patient had gone to the restroom and was standing, trying to "replace the toilet paper" while holding onto a rail, and had subsequently fallen. The patient was brought in to [facility] and subsequently transferred to our facility. The patient's daughter informs me that she has seen Oncology recently as a result of a markedly abnormal CT scan that revealed probable lymphoma. Patient states that they have now discovered that she does not have lymphoma but likely has an adenocarcinoma which has originated from the GI tract. Upon questioning the patient she denied severe pain. Apparently the patient does become quite short of breath with exertion but denies shortness of breath will rest. PAST MEDICAL HISTORY, PAST SURGICAL HISTORY, MEDICATIONS, ALLERGIES, SOCIAL HISTORY, FAMILY HISTORY, REVIEW OF SYSTEMS Will be performed by my nurse practitioner, Jeffrey Garrett APRN. PHYSICAL EXAM GENERAL: Mrs. Mayberry is an 82-year-old cachetic female who appears quite frail and older than her stated age. VITAL SIGNS: Temperature 98.1, pulse 103, blood pressure 151/69, SAO2 99% on 1.5 L/nasal cannula. HEENT: Normocephalic. Pupils are equally round and react to light and accommodation. CHEST: The patient was found to have a large right pleural effusion and one could appreciate some diminished breath sounds on the right. There were rales noted bilaterally upon auscultation. HEART: Regular rate and rhythm. No murmur auscultated. ABDOMEN: Soft, nontender. No evidence for guarding or rebound. EXTREMITIES: Without clubbing, cyanosis, or edema. NEURO: Cranial nerves II-XII grossly intact. Patient is without focal motor or sensory deficits. LABORATORY/RADIOGRAPHIC EVALUATION The patient had a CBC and her white count was 12.2. Hemoglobin is 10.1. Patient is on Coumadin and her INR was 2.01. CMP was obtained and found to be without marked abnormalities. The patient did undergo a CT scan of her chest, abdomen, and pelvis. She was found to have extensive metastatic disease with a probable malignant right pleural effusion. There was mediastinal, omental, mesenteric and pelvic jessica metastatic disease. She was found have ascites. She was found to have a right adrenal mass, likely representing metastasis. I reviewed pathology report from March 02, 2018 in regards to a biopsy of a superficial mesenteric lymph node. This did reveal poorly differentiated carcinoma. There was no morphologic or flow cytometry evidence for lymphoma. ASSESSMENT 82-year-old female with extensive metastatic disease secondary to poorly differentiated carcinoma. Patient likely at end stage of life. Patient with significant associated medical comorbidities. PLAN I informed the patient and her family members who were present, including her and daughter, that I would not recommend intervening with any invasive testing or interventions at this time. I would recommend focusing on palliation and proceeding with hospice consult. In regards to her right pleural effusion I would not recommend thoracentesis unless she would become significantly short of breath at rest. It is my intuition that her pleural effusion will likely reaccumulate fairly quickly following thoracentesis. Currently her breathing is not labored with minimal amount of supplemental oxygen. The patient herself informed me that she agrees with my recommendation and would like to focus on comfort care. RAMONAD
--- NOTE | 2018-03-10 18:27 | Echocardiogram ---
DATE OF PROCEDURE March 10, 2018 This is a two-dimensional echo with spectral Doppler, color-flow and M-mode. It was obtained in a patient with shortness of breath and edema. Left atrial dimension is normal. Left ventricular end-diastolic dimension is normal. Left ventricular wall thickness is normal. LV systolic function is hyperdynamic with ejection fraction of about 75%-80%. Right atrium is normal. Right ventricle is normal. Aortic root dimension is normal. Mitral valve annulus is calcified. Mitral valve leaflets are normal with trace of mitral regurgitation. Aortic valve shows fibrocalcific changes with no stenosis. Moderate aortic insufficiency is present. Tricuspid valve shows moderate-to- severe tricuspid regurgitation with moderate pulmonary hypertension with estimated pulmonary artery systolic pressure of 54. Pulmonary valve shows no pulmonary insufficiency. There is no pericardial effusion. IMPRESSION 1. Hyperdynamic left ventricle with ejection fraction of about 75%-80%. 2. Mitral annulus calcification with trace of mitral regurgitation. 3. Aortic sclerosis with moderate aortic insufficiency. 4. [id number] tricuspid regurgitation with moderate pulmonary hypertension with estimated pulmonary artery systolic pressure of 54. MTDD
[2018-03-10] MEDS: ALBUTEROL 2.5mg/3ml (0.083%) NEB AEROSOL PRN (21:22)
[2018-03-11] MEDS: FUROSEMIDE 20 MG/2 ML INJECTION IVP SCH ×2 (00:16→09:44)
[2018-03-11] MEDS: LEVOTHYROXINE 100 MCG TABLET PO SCH (06:35)
[2018-03-11] MEDS: PANTOPRAZOLE 40 MG TABLET PO SCH (06:35)
[2018-03-11] MEDS: SALINE FLUSH 10ml SYRINGE IV PRN ×4 (06:37→16:42)
--- NOTE | 2018-03-11 07:47 | General Surgery Consult Note ---
Consult date: 03/11/18 Attending Physician: Sergio Gomez MD [facility] Patient Stated Medical History Medical History Updates: GERD. large Hiatal hernia. 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 Hypothyroid. Osteoporosis. Arthritis, unspecified. Left lower extremity DVT 15-16 years ago. Inoperable large hiatal hernia. Right spigelian hernia and ventral incisional hernia. Diverticulitis. Multiple negative breast biopsies Surgical History: ECHO IMPRESSION. 1. Hyperdynamic left ventricle with ejection fraction of about 75%-80%. 2. Mitral annulus calcification with trace of mitral regurgitation. 3. Aortic sclerosis with moderate aortic insufficiency. 4. Oposrwxc-dz-rgpyhe tricuspid regurgitation with moderate pulmonary hypertension with estimated pulmonary artery systolic pressure of 54. 03/10/2018 Amirani. Radiologic needle biopsy abd mass 03/02/2018. Cholecystectomy. Sinus surgery. Hysterectomy. Sigmoid colectomy with incidental appendectomy 12/10/04 due to chronic sigmoid diverticulitis, with 30cm of bowel removed. Pathology showed small hyperplastic polyp and tubular adenoma. Colonoscopy 03/06/03 showing moderate sigmoid diverticulosis and scattered colonic diverticula. EGD 12/03/09 showing hiatal hernia and hyperplastic gastric polyp. Spegalian Hernia repair 2011 with mesh placement. Bilateral eyelid resection 2012. Breast biopsy Family History Updates: Sr. BRCA. Brother liver transplant 2 due to primary liver failure. Cousin with similar liver dysfunction. Father due to traumatic injury from a fall. Mother heart failure - Social History Smoking status: Never smoker Substance use type: does not use Alcohol intake frequency: does not drink Housing: house Household members: spouse Current occupational status: retired Current residence: Apartment/Private Home Medications Home Medications Medication Instructions Recorded Confirmed Type Albuterol HFA Inhaler [Ventolin 2 puff INH Q6H 03/09/18 03/09/18 History Hfa 90 mcg/actuation] Albuterol Neb (0.083%) [Proventil 1 vial IH Q4-6HPRN PRN 03/09/18 03/09/18 History Neb (0.083%)] Atenolol [Tenormin] 1 tab PO DAILY 03/09/18 03/09/18 History Furosemide [Lasix] 40 mg PO BID 03/09/18 03/09/18 History Gabapentin 300 mg PO QID 03/09/18 03/09/18 History Levothyroxine Tab [Synthroid] 1 tab PO DAILY 03/09/18 03/09/18 History Lovastatin 20 mg PO HS 03/09/18 03/09/18 History Pantoprazole Sodium [Protonix] 1 tab PO ACB 03/09/18 03/09/18 History Potassium Chloride 20 meq PO TID 03/09/18 03/09/18 History Promethazine HCl 25 mg PO Q6H PRN 03/09/18 03/09/18 History Tramadol HCl [Ultram] 50 - 100 mg PO TID PRN 03/09/18 03/09/18 History Warfarin Sodium [Coumadin] 3 mg PO DAILY 03/09/18 03/09/18 History Allergies Allergy/AdvReac Type Severity Reaction Status Date / Time omeprazole Allergy Mild skin rash Verified 03/09/18 19:17 to face polymyxin B Allergy Mild swelling Verified 03/09/18 19:17 to eye Aminoglycosides Allergy Verified 03/09/18 17:31 Anesthetics - Amide Type Allergy Verified 03/09/18 17:31 atorvastatin [From Lipitor] Allergy Verified 03/09/18 17:31 colistin Allergy Verified 03/09/18 17:31 flurbiprofen Allergy Verified 03/09/18 17:31 ondansetron [From Zofran] Allergy Respiratory Verified 03/09/18 17:48 Depression Progestins Allergy Verified 03/09/18 17:31 Proton Pump Inhibitors Allergy Unverified 03/09/18 19:17 salicylates Allergy Unverified 03/09/18 19:17 Yemkhpc-Gwz-Scb Reductase Allergy Unverified 03/09/18 19:17 Inhibitor tobramycin Allergy Unverified 03/09/18 19:17 trimethoprim Allergy Unverified 03/09/18 19:17 valsartan Allergy passed out Verified 03/09/18 19:17 ARB-Angiotensin Receptor AdvReac Severe passed out Verified 03/09/18 18:50 Antagonist Estrogens AdvReac Severe BLOOD CLOTS Verified 03/09/18 17:31 estrogens, conjugated AdvReac Severe blood clot Verified 03/09/18 19:17 [From Prempro] medroxyprogesterone AdvReac Severe Anorexia Verified 03/09/18 19:17 [From Prempro] lidocaine AdvReac Mild Verified 03/09/18 18:48 NSAIDS (Non-Steroidal AdvReac conflict Verified 03/09/18 19:17 Anti-Inflamma with other meds Opioids-Meperidine and AdvReac Nausea Verified 03/09/18 19:17 Related fentanyl transdermal patch Allergy Uncoded 03/09/18 17:31 polymyxins Allergy Uncoded 03/09/18 17:31 Review of Systems 10-point ROS: negative except for HPI and the following: - General General: Present: other (fatigue) - Respiratory Respiratory: Present: wheezing (when COPD "is worse"), difficulty breathing (SOA ), cough - Gastrointestinal Gastrointestinal: Present: other (poor appetite, early saitety, abd pain after eating) Additional comments: GERD - Musculoskeletal Musculoskeletal: Present: back pain, joint pain - Neurological Neurological: Present: muscle weakness - Endocrine Endocrine: Present: thyroid problems - Hematologic/Lymphatic Hematologic/Lymphatic: Present: easy bruising, history of blood clots/DVT/PE, use of blood thinners - Vital Signs Last Vital Signs Temp 98.5 F 03/10/18 23:57 Pulse 101 H 03/10/18 23:57 Resp 22 03/10/18 21:23 BP 124/58 03/10/18 23:57 Pulse Ox 98 03/10/18 23:57 - Laboratory Result Diagrams: 03/11/18 05:07 03/11/18 05:07 General Surgery Results - Results Labs: 03/11/18 05:07 03/11/18 05:07
[2018-03-11] MEDS: GABAPENTIN 300 MG CAPSULE PO SCH ×4 (09:44→23:05)
[2018-03-11] MEDS: MORPHINE SULFATE 4mg INJECTION IVP PRN ×4 (09:44→23:22)
[2018-03-11] MEDS: TRAMADOL 50 MG TABLET PO PRN (10:22)
--- NOTE | 2018-03-11 10:49 | Progress Note ---
- Date 03/11/18 Subjective: F/U: Metastatic poorly differentiated carcinoma, Progressive generalized weakness, Hyperkalemia Resting n bed. Slept fair-frequent turning interrupted sleep. Reports pain controlled with current medications. Tolerating well. Less nausea. Oral drive variable. Breathing about the same. Very weak-effort of talking very taxing. Not wanting thoracentesis. Objective Vital signs: Temperature 97.4 F 03/11/18 08:00 Pulse Rate 107 H 03/11/18 08:00 Respiratory Rate 20 03/11/18 09:44 Blood Pressure 160/66 H 03/11/18 08:00 Pulse Oximetry 91 03/11/18 08:00 Height/Weight/BMI: Height 1.63 m Weight 73.8 kg Body Mass Index 27.8 - Constitutional Present: well nourished, well developed, cooperative, other (Weak/tired) - Routine HEENT Exam Head: Present: normocephalic, atraumatic Eye: Present: EOMI ENT: Present: mucous membranes moist - Routine Respiratory Exam Present: decreased breath sounds. Absent: wheezes, crackles - Routine Cardiovascular Exam Present: no murmur, tachycardia (Regular) - Routine Abdominal Exam Present: soft, non distended. Absent: normoactive bowel sounds (Decreased) - Routine Extremities Exam Present: pulses intact. Absent: cyanosis, clubbing - Routine Musculoskeletal Exam Musculoskeletal: Present: no clubbing or cyanosis - Routine Skin Exam Present: dry, warm - Routine Neurological Exam Present: alert, vision grossly intact, hearing grossly intact. Absent: motor deficit, normal speech (Soft/weak) - Routine Psychiatric Exam Present: cooperative. Absent: agitated Results - Labs CBC & Chem 7: 03/11/18 05:07 03/11/18 05:07 Assessment and Plan (1) Fall Current visit: Yes Status: Acute Assessment and Plan: Impression Progressive generalized weakness Metastatic poorly differentiated carcinoma, unknown source Fluid overload with general anasarca Generalized muscle wasting, likely secondary to malignancy Hyperkalemia (POA) Moderate protein calorie malnutrition GERD Large hiatal hernia Chronic kidney disease, unknown baseline serum creatinine Osteoporosis Extensive history of arthritis, type unspecified History of bowel resection History of knee repair with mesh 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 No surgical intervention recommended by Dr Jonas. Will discuss with Dr Aceves about chemo recommendations - when we spoke yesterday he didn't feel palliative treatment beneficial. Discussed about possible hospice. Patient would need increase help at home, not wanting half-way. Likely would need private pay nursing. Will stop IV Lasix - do not feel will help decrease effusion. Will stop PT/OT as not indicated. Continue with pain/nausea/symptom control. 1335 Discussed with patient's daughter about care plans. In discussion with Dr Parrish, no chemo recommendations. Comfort measures. Family would like [facility]. Do not want half-way care-will get additional family members in to help with care needs. Discussed about Code Status. Resuscitative effort would be futile. Daughter reports pt would still like full code at this time. Continue dialog. Will had CM make arrangements for meeting with [facility]. Will also provide information about additional private pay nursing care if needs arise. Likely discharge to home if care arrangements can be made. Case discussed with CM, Dr Parrish, and family. Time spent with patient care 35 minutes. End of life care pains discussed. DVT Prophylaxis: SCD's Resuscitation Status: Full Code - Time spent with patient Time with patient PN: 35 minutes - Physician Narrative Physician: Sergio Gomez MD Narrative: Date: 03/11/18 Time: 1045 Hospital Course Summary Disclaimer: The visit summary below is not to be considered part of the above Progress Note. 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 Anticipate greater than 2 midnights of care needed. Will assess labs now, as we do not have those performed at outlying facility available. Also assess troponin, BNP now as patient is short of air and demonstrating significant anxiety despite normal O2 sats. Get CT chest abdomen and pelvis due to known malignancy and concern for rapid progression. Will avoid contrast due to underlying chronic kidney disease. Consult Dr. Aceves in the morning for further evaluation as Dr. Solis is out of town. Check CEA now, LDH for baseline. Get EKG. Telemetry. Check Echo in AM. We'll provide Lasix 40 mg IV 1 now. Hold further diuresis until we get labs back. Suspect that she will need ongoing significant IV diuresis due to the significance of anasarca. She is quite short of air, and is asking for oxygen. I do suspect she has significant underlying pleural effusion. Discussed this with nursing staff, will allow oxygen to be given for symptomatic relief. She is quite malnourished. She has been made nothing by mouth tonight until we get her CT scan back. Likely need to add nutritional supplements to help augment her oral intake. Malnutrition is likely worsening her generalized ascites and 3rd spacing. Will provide when necessary Compazine, and she is listing allergy to Zofran. She reports prior history of left lower extremity DVT, and has been on warfarin since then. Unclear if she was tested for clotting disorder, or if this was was provoked or recurrent. We'll check INR now, and further address her warfarin needs in the morning. Hold Warfarin this evening due to fall and possible surgical procedures. CT of the head done in [place] was negative for acute intracranial hemorrhage. Continue PPI for history of GERD, large hiatal hernia. Progressive dysphasia is concerning for increasing hiatal lymphadenopathy. I did discuss code status and DPOA with her. We will need to follow up on this, as I suspect her prognosis is very guarded. Care to return to Dr Powell at time of discharge from [facility]. 03/10/18 CT obtained yesterday is very concerning for diffuse malignancy. Likely GI source. CEA is elevated, LDH is quite elevated. Consult to Dr. Aceves pending. Only treatment would likely be palliative, and uncertain if even that would be helpful given extensive abdominal tumor burden. Patient does endorse a history of hyst, but ovaries were left intact. She also has sense of fullness with sitting, unclear if that is mass related or due to ascites. Echo is pending for possible heart failure. Severe malnutrition coupled with intra-abdominal malignancy is also underlying source for ascites. Bilateral pleural effusions ongoing. We could consider a therapeutic tap for comfort if needed. Continue supportive oxygen. Serum potassium is improving, serum creatinine is trending down. Urban was placed due to patient's difficulty and using bedside commode and bedpan. Will stop IVF. Continue diuresis to help continue to normalize potassium as well as creatinine. We'll continue to hold warfarin for now telemetry can further determine a plan of care. Use SCDs for DVT prophylaxis. Vitamin K 10mg X1 to low INR due to potential thoracentesis. There is concern for possible gastric outlet obstruction, she has a known very large hiatal hernia. Continue PPI. Dr. Jonas has been consulted. Patient may need EGD for further diagnosis. Will be high risk for any sedated procedure. Discussed about possible thoracentesis for therapeutic purposes. Continue with MS as needed for pain. Will add lorazepam as needed. Overall she, she continues to appear very ill. I believe her overall prognosis is likely very grave. She remains a full code at her request. 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 Don't believe that she could safely return home. Her is very frail and elderly, and could not care for her at home. We'll further address when we have a more determine plan of care. 03/11/16 Patient not desiring thoracentesis. No surgical intervention recommended by Dr Jonas. Will discuss with Dr Aceves about chemo recommendations - when we spoke yesterday he didn't feel palliative treatment beneficial. Discussed about possible hospice. Patient would need increase help at home, not wanting half-way. Likely would need private pay nursing. Will stop IV Lasix - do not feel will help decrease effusion. Will stop PT/OT as not indicated. Continue with pain/nausea/symptom control. 1335 Discussed with patient's daughter about care plans. In discussion with Dr Parrish, no chemo recommendations. Comfort measures. Family would like [facility]. Do not want half-way care-will get additional family members in to help with care needs. Discussed about Code Status. Resuscitative effort would be futile. Daughter reports pt would still like full code at this time. Continue dialog. Will had CM make arrangements for meeting with [facility]. Will also provide information about additional private pay nursing care if needs arise. Likely discharge to home if care arrangements can be made.
--- NOTE | 2018-03-11 13:48 | Progress Note ---
<Nanda Hernandez - Last Filed: 03/11/18 16:34> Oncology Subjective Reclining in hospital bed, daughter/ at bedside. Continues with shortness of air, cough, weakness, intermittent pain. Denies worsening symptoms today. Lunch just arrived, patient is going to try to eat some soup General: No fever, generalized weakness Eyes: No redness, no pain, no diplopia ENT: No mouth sores, no trouble swallowing Cardiac: + chest pain no palpitations Pulmonary: + cough, + shortness of breath, no wheezing Abdomen: no nausea/ vomiting today. : sumner Musculoskeletal: chronic OA Skin: No rash, no sores Psychiatric: No anxiety, no depression Exam Vital signs: Temperature 97.4 F 03/11/18 08:00 Pulse Rate 107 H 03/11/18 08:00 Respiratory Rate 20 03/11/18 12:45 Blood Pressure 160/66 H 03/11/18 08:00 Pulse Oximetry 91 03/11/18 08:00 Narrative: Generic Name Dose Route Start Last Admin Trade Name Freq PRN Reason Stop Dose Admin Albuterol Sulfate 2.5 mg 03/09/18 23:23 03/11/18 16:43 Proventil Neb (0.083%) AEROSOL 2.5 mg Q4HPRN PRN Administration Shortness of air Gabapentin 300 mg 03/09/18 21:00 03/11/18 12:46 Neurontin PO 300 mg QID JENNIFER Administration Levothyroxine Sodium 100 mcg 03/10/18 06:30 03/11/18 06:35 Synthroid PO 100 mcg ACB JENNIFER Administration Lorazepam 0.5 mg 03/10/18 14:55 Ativan Inj IVP Q4H PRN Anxiety/Air hunger/Agitation Morphine Sulfate 2 mg 03/10/18 06:30 03/11/18 16:38 Morphine Sulfate Inj IVP 2 mg Q3-4HR PRN Administration Pain Pantoprazole Sodium 40 mg 03/10/18 06:30 03/11/18 06:35 Protonix Tab PO 40 mg ACB JENNIFER Administration Prochlorperazine Edisylate 10 mg 03/09/18 18:58 03/09/18 19:43 Compazine Iv IVP 10 mg Q6H PRN Administration Nausea &/or vomiting Sodium Chloride 10 - 80 ml 03/11/18 05:59 03/11/18 16:42 Iv Flush IV 10 ml PRN PRN Administration Flushing Tramadol HCl 50 mg 03/09/18 18:56 03/11/18 10:22 Ultram PO 50 mg Q4H PRN Administration Pain Discontinued Medications Generic Name Dose Route Start Last Admin Trade Name Freq PRN Reason Stop Dose Admin Albuterol Sulfate 2.5 mg 03/09/18 18:56 Proventil Neb (0.083%) AEROSOL Q4-6HPRN PRN Shortness of air Furosemide 40 mg 03/09/18 19:00 03/09/18 20:53 Lasix 20 Mg/2 Ml IVP 03/09/18 19:01 40 mg ONCE ONE Administration Furosemide 20 mg 03/10/18 01:00 03/11/18 09:44 Lasix 20 Mg/2 Ml IVP 20 mg Q8HR JENNIFER Administration Dextrose/Sodium Chloride 1,000 mls @ 70 mls/hr 03/09/18 19:45 03/10/18 12:31 D5-1/2ns IV 70 mls/hr .[id number] JENNIFER Infusion Phytonadione 10 mg/ Sodium 51 mls @ 150 mls/hr 03/10/18 14:56 03/10/18 15:32 Chloride IV 03/10/18 15:16 150 mls/hr O ONE Administration Morphine Sulfate 2 mg 03/09/18 19:00 03/10/18 04:23 Morphine Sulf 2 Mg Inj IVP 2 mg Q3-4HR PRN Administration Pain - Constitutional no acute distress, cooperative - Routine HEENT Exam Head: Present: normocephalic Eye: Present: EOMI Nose: dry mucous membranes - Routine Neck Exam Absent: lymphadenopathy - Routine Respiratory Exam Present: decreased breath sounds. Absent: wheezes, crackles - Routine Cardiovascular Exam Present: RRR, no murmur, tachycardia - Routine Abdominal Exam Present: soft, non tender, distended - Routine Extremities Exam Present: edema - Routine Skin Exam Present: dry, pallor, warm - Routine Neurological Exam Present: alert, oriented X3 - Routine Psychiatric Exam Present: normal affect, cooperative Oncology Results - Labs CBC & Chem 7: 03/11/18 05:07 03/11/18 05:07 Labs: Short CBC 03/11/18 Range/Units 05:07 WBC 11.1 H (4.5-11.0) T/MM3 Hgb 9.7 L (12-16) GM/DL Hct 31.0 L (36-46) % Plt Count 227 (130-400) T/MM3 BMP 03/11/18 05:07 Sodium 136 Potassium 4.5 Chloride 98 Carbon Dioxide 27 BUN 45.0 H Creatinine 1.8 H Glucose 84 Calcium 7.7 L Liver Function 03/11/18 Range/Units 05:07 Total Bilirubin 1.10 (0.20-1.30) MG/DL AST 74 H (14-36) U/L ALT 8 (1-35) U/L Alkaline Phosphatase 80 (38-126) U/L Albumin 2.9 L (3.5-5.0) g/dL Assessment and Plan Assessment and Plan: 1. Mesenteric lymph node biopsy shows extensive, metastatic, poorly differentiated carcinoma of undetermined origin. CT of chest abdomen pelvis shows extensive metastatic disease with likely malignant pleural effusion, mediastinal, omental, mesenteric, and prep pelvic jessica metastatic disease. Also shows right adrenal mass, likely representing a metastasis. Likely adenocarcinoma consistent with colorectal or pancreatic carcinoma. 2. 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 Aceves and Dr. Joiner of limited treatment options.Patient/family have decided on [facility]. Continue palliative care/comfort care. - Time Spent With Patient Total time spent is greater than 50% in coordination of care (as documented) at patient's floor/unit and/or counseling patient: less than 15 minutes <Manny Aceves - Last Filed: 03/11/18 17:15> Exam Vital signs: Temperature 96.4 F L 03/11/18 16:00 Pulse Rate 113 H 03/11/18 16:00 Respiratory Rate 26 H 03/11/18 16:43 Blood Pressure 159/83 H 03/11/18 16:00 Pulse Oximetry 100 03/11/18 16:43 Oncology Results - Labs CBC & Chem 7: 03/11/18 05:07 03/11/18 05:07 Labs: Short CBC 03/11/18 Range/Units 05:07 WBC 11.1 H (4.5-11.0) T/MM3 Hgb 9.7 L (12-16) GM/DL Hct 31.0 L (36-46) % Plt Count 227 (130-400) T/MM3 BMP 03/11/18 05:07 Sodium 136 Potassium 4.5 Chloride 98 Carbon Dioxide 27 BUN 45.0 H Creatinine 1.8 H Glucose 84 Calcium 7.7 L Liver Function 03/11/18 Range/Units 05:07 Total Bilirubin 1.10 (0.20-1.30) MG/DL AST 74 H (14-36) U/L ALT 8 (1-35) U/L Alkaline Phosphatase 80 (38-126) U/L Albumin 2.9 L (3.5-5.0) g/dL Assessment and Plan Assessment and Plan: Patient examined, chart reviewed, extensive discussion with patient, family, [facility] regarding extent of disease and treatment options. Her performance status is 3 almost 4 and has significantly declined in the last 2 weeks. She has extensive disease of a tumor that is moderately sponsored and could be treated if she had better performance status. However the benefit of using chemotherapy versus performance status 3 or 4 patients in diseases that don't have significant response i.e. lymphoma or small cell carcinoma is limited. In cases its even detrimental. Options of chemotherapy would include treatment for colorectal cancer with infusional 5-FU and leucovorin or possibly considering this a primary peritoneal disorder with elevated CA-125 and doing weekly carboplatin and Taxol. Overall I do not feel that her performance status would allow us to effectively treat this patient therefore hospice care would be the most appropriate approach. They have informational visit with [facility] and I discussed this with Dr. Gomez. - Time Spent With Patient Total time spent is greater than 50% in coordination of care (as documented) at patient's floor/unit and/or counseling patient: 25 - 35 minutes
[2018-03-11] MEDS: ALBUTEROL 2.5mg/3ml (0.083%) NEB AEROSOL PRN ×2 (16:43→22:19)
[2018-03-11] MEDS ORDERED: FALL RISK - PHARMACY CONSULT MC ONE (17:01)
[2018-03-12] MEDS: TRAMADOL 50 MG TABLET PO PRN ×2 (00:48→06:13)
[2018-03-12] MEDS: PROCHLORPERAZINE 10 MG/2 ML INJECTION IVP PRN (03:32)
[2018-03-12] MEDS: LEVOTHYROXINE 100 MCG TABLET PO SCH (06:05)
[2018-03-12] MEDS: PANTOPRAZOLE 40 MG TABLET PO SCH (06:05)
[2018-03-12] MEDS: ALBUTEROL 2.5mg/3ml (0.083%) NEB AEROSOL PRN ×2 (06:27→14:32)
[2018-03-12] MEDS: GABAPENTIN 300 MG CAPSULE PO SCH ×2 (08:40→12:50)
[2018-03-12 08:52] VITALS: BP 125/62; PULSE 107; TEMP 97.2
[2018-03-12] MEDS: MORPHINE SULFATE 4mg INJECTION IVP PRN ×2 (09:56→15:40)
[2018-03-12] MEDS: SALINE FLUSH 10ml SYRINGE IV PRN ×2 (09:57→15:41)
--- NOTE | 2018-03-12 10:23 | Progress Note ---
- Date 03/12/18 Subjective: F/U: Metastatic poorly differentiated carcinoma, Progressive generalized weakness, Hyperkalemia Weak/tired. Slept restlessly. Oral drive variable. Taxing to get out of bed. Arrangements being made for discharge with [facility]. Objective Vital signs: Temperature 97.2 F 03/12/18 08:50 Pulse Rate 107 H 03/12/18 08:50 Respiratory Rate 16 03/12/18 08:50 Blood Pressure 125/62 03/12/18 08:50 Pulse Oximetry 96 03/12/18 08:50 Height/Weight/BMI: Height 1.63 m Weight 73.8 kg Body Mass Index 27.8 - Constitutional Present: well nourished, well developed, other (Weak/tired) - Routine HEENT Exam Head: Present: normocephalic, atraumatic ENT: Present: mucous membranes dry - Routine Respiratory Exam Present: decreased breath sounds. Absent: respiratory distress, wheezes, crackles - Routine Cardiovascular Exam Present: RRR, no murmur - Routine Abdominal Exam Present: soft, non distended, non tender. Absent: normoactive bowel sounds ( Decreased) - Routine Extremities Exam Absent: cyanosis, clubbing - Routine Skin Exam Present: dry, warm - Routine Neurological Exam Present: vision grossly intact, hearing grossly intact. Absent: altered mental status - Routine Psychiatric Exam Comments: Somnolent Results - Labs CBC & Chem 7: 03/11/18 05:07 03/11/18 05:07 Assessment and Plan (1) Fall Current visit: Yes Status: Acute Assessment and Plan: Impression Progressive generalized weakness Metastatic poorly differentiated carcinoma, unknown source Fluid overload with general anasarca Generalized muscle wasting, likely secondary to malignancy Hyperkalemia (POA) Moderate protein calorie malnutrition GERD Large hiatal hernia Chronic kidney disease, unknown baseline serum creatinine Osteoporosis Extensive history of arthritis, type unspecified History of bowel resection History of knee repair with mesh 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 Condition is terminal. Terminal diagnosis is metastatic poorly differentiated carcinoma of unknown source. Life expectancy days to weeks. Hospice getting necessary equipment set up at home. Will discharge to home of hospice today. Diet as patient tolerates. Activities as patient tolerates. Will continue with Urban to dependent drainage for comfort measure. May stop Coumadin, Zocor, Synthroid, and supplements. Hospice recommends Roxanol 20mg/ml 0.25 to 1ml SL q 1 hour prn pain/air hunger Lorazepam 0.5mg SL q 4 hours prn anxiety/agitation/air hunger Levsin 0.125mg SL q 2 hours prn secretions. Will change home tramadol to 100mg po TID - may have 2 additional tablets daily if needed. (Max 8 tables in 24 hours). Change Lasix to 40mg daily prn edema - patient to take potassium only if taking Lasix. O2 for comfort measures. [facility] will initiate care upon patient's return to home. See orders for details. Discussed at length with daughter. Questions answered. Emotional support provided. Time spent with patient's care and discharge greater than 30 minutes. DVT Prophylaxis: SCD's Resuscitation Status: Full Code - Physician Narrative Physician: Sergio Gomez MD Narrative: Date: 03/12/18 Time: 1019 Hospital Course Summary Disclaimer: The visit summary below is not to be considered part of the above Progress Note. 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 Anticipate greater than 2 midnights of care needed. Will assess labs now, as we do not have those performed at outlying facility available. Also assess troponin, BNP now as patient is short of air and demonstrating significant anxiety despite normal O2 sats. Get CT chest abdomen and pelvis due to known malignancy and concern for rapid progression. Will avoid contrast due to underlying chronic kidney disease. Consult Dr. Aceves in the morning for further evaluation as Dr. Solis is out of town. Check CEA now, LDH for baseline. Get EKG. Telemetry. Check Echo in AM. We'll provide Lasix 40 mg IV 1 now. Hold further diuresis until we get labs back. Suspect that she will need ongoing significant IV diuresis due to the significance of anasarca. She is quite short of air, and is asking for oxygen. I do suspect she has significant underlying pleural effusion. Discussed this with nursing staff, will allow oxygen to be given for symptomatic relief. She is quite malnourished. She has been made nothing by mouth tonight until we get her CT scan back. Likely need to add nutritional supplements to help augment her oral intake. Malnutrition is likely worsening her generalized ascites and 3rd spacing. Will provide when necessary Compazine, and she is listing allergy to Zofran. She reports prior history of left lower extremity DVT, and has been on warfarin since then. Unclear if she was tested for clotting disorder, or if this was was provoked or recurrent. We'll check INR now, and further address her warfarin needs in the morning. Hold Warfarin this evening due to fall and possible surgical procedures. CT of the head done in [place] was negative for acute intracranial hemorrhage. Continue PPI for history of GERD, large hiatal hernia. Progressive dysphasia is concerning for increasing hiatal lymphadenopathy. I did discuss code status and DPOA with her. We will need to follow up on this, as I suspect her prognosis is very guarded. Care to return to Dr Powell at time of discharge from [facility] [place] [facility]. 03/10/18 CT obtained yesterday is very concerning for diffuse malignancy. Likely GI source. CEA is elevated, LDH is quite elevated. Consult to Dr. Aceves pending. Only treatment would likely be palliative, and uncertain if even that would be helpful given extensive abdominal tumor burden. Patient does endorse a history of hyst, but ovaries were left intact. She also has sense of fullness with sitting, unclear if that is mass related or due to ascites. Echo is pending for possible heart failure. Severe malnutrition coupled with intra-abdominal malignancy is also underlying source for ascites. Bilateral pleural effusions ongoing. We could consider a therapeutic tap for comfort if needed. Continue supportive oxygen. Serum potassium is improving, serum creatinine is trending down. Urban was placed due to patient's difficulty and using bedside commode and bedpan. Will stop IVF. Continue diuresis to help continue to normalize potassium as well as creatinine. We'll continue to hold warfarin for now telemetry can further determine a plan of care. Use SCDs for DVT prophylaxis. Vitamin K 10mg X1 to low INR due to potential thoracentesis. There is concern for possible gastric outlet obstruction, she has a known very large hiatal hernia. Continue PPI. Dr. Jonas has been consulted. Patient may need EGD for further diagnosis. Will be high risk for any sedated procedure. Discussed about possible thoracentesis for therapeutic purposes. Continue with MS as needed for pain. Will add lorazepam as needed. Overall she, she continues to appear very ill. I believe her overall prognosis is likely very grave. She remains a full code at her request. Have encouraged her to establish a medical [employer]. Don't believe that she could safely return home. Her is very frail and elderly, and could not care for her at home. We'll further address when we have a more determine plan of care. 03/11/16 Patient not desiring thoracentesis. No surgical intervention recommended by Dr Jonas. Will discuss with Dr Aceves about chemo recommendations - when we spoke yesterday he didn't feel palliative treatment beneficial. Discussed about possible hospice. Patient would need increase help at home, not wanting fpc. Likely would need private pay nursing. Will stop IV Lasix - do not feel will help decrease effusion. Will stop PT/OT as not indicated. Continue with pain/nausea/symptom control. 1335 Discussed with patient's daughter about care plans. In discussion with Dr Parrish, no chemo recommendations. Comfort measures. Family would like [facility]. Do not want fpc care-will get additional family members in to help with care needs. Discussed about Code Status. Resuscitative effort would be futile. Daughter reports pt would still like full code at this time. Continue dialog. Will had CM make arrangements for meeting with [facility]. Will also provide information about additional private pay nursing care if needs arise. Likely discharge to home if care arrangements can be made. 03/12/18 Patient and family have opted for [facility] for hospice care. Condition is terminal. Terminal diagnosis is metastatic poorly differentiated carcinoma of unknown source. Life expectancy days to weeks. Hospice getting necessary equipment set up at home. Will discharge to home of hospice today. Diet as patient tolerates. Activities as patient tolerates. Will continue with Urban to dependent drainage for comfort measure. May stop Coumadin, Zocor, Synthroid, and supplements. Hospice recommends Roxanol 20mg/ml 0.25 to 1ml SL q 1 hour prn pain/air hunger Lorazepam 0.5mg SL q 4 hours prn anxiety/agitation/air hunger Levsin 0.125mg SL q 2 hours prn secretions. Will change home tramadol to 100mg po TID - may have 2 additional tablets daily if needed. (Max 8 tables in 24 hours). Change Lasix to 40mg daily prn edema - patient to take potassium only if taking Lasix. O2 for comfort measures. [facility] will initiate care upon patient's return to home. See orders for details.
[2018-03-12] MEDS: TRAMADOL 50 MG TABLET PO SCH ×2 (12:50→14:20)
[2018-03-12 14:44] VITALS: RESP 24; O2SAT 98
--- NOTE | 2018-03-12 14:54 | Discharge Summary ---
Discharge Information Date of admission: 03/09/18 19:48 Anticipated date of discharge: 03/12/18 Attending Physician: Sergio Gomez MD Primary care physician: Aster Batres MD Consults: Physician Consult: Charan Jonas Reason For Exam: ? bowel obstruction secondary to mass Physician Consult: Manny Aceves Reason For Exam: Carcinoma [facility] - Discharge Diagnosis (1) Fall Status: Acute Admitting diagnosis Progressive generalized weakness Fall Discharge diagnosis Metastatic poorly differentiated carcinoma, unknown source Terminal conditions - no treatment options viable Associated conditions and complications Fluid overload with general anasarca Right Pleural effusion - suspect metastatic Generalized muscle wasting, likely secondary to malignancy Hyperkalemia (POA) - resolved GERD Large hiatal hernia Chronic kidney disease - suspect Stage IV Moderate pulmonary hypertension Moderate protein calorie malnutrition Osteoporosis Extensive history of arthritis, type unspecified History of bowel resection History of knee repair with mesh 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 Left ventricular end-diastolic dimension is normal. Left ventricular wall thickness is normal. LV systolic function is hyperdynamic with ejection fraction of about 75%-80%. Right atrium is normal. Right ventricle is normal. Aortic root dimension is normal. Mitral valve annulus is calcified. Mitral valve leaflets are normal with trace of mitral regurgitation. Aortic valve shows fibrocalcific changes with no stenosis. Moderate aortic insufficiency is present. Tricuspid valve shows moderate-to- severe tricuspid regurgitation with moderate pulmonary hypertension with estimated pulmonary artery systolic pressure of 54. Pulmonary valve shows no pulmonary insufficiency. There is no pericardial effusion. IMPRESSION 1. Hyperdynamic left ventricle with ejection fraction of about 75%-80%. 2. Mitral annulus calcification with trace of mitral regurgitation. 3. Aortic sclerosis with moderate aortic insufficiency. 4. [id number] tricuspid regurgitation with moderate pulmonary hypertension with estimated pulmonary artery systolic pressure of 54. - Laboratory Labs: Admit Lab 03/09/18 19:19 WBC 10.6 Hgb 10.6 L Hct 33.3 L MCV 89.5 Plt Count 235 Neut % (Auto) 74.3 H Lymph % (Auto) 14.1 L Frio % (Auto) 9.4 H Eos % (Auto) 1.2 Baso % (Auto) 0.3 Admit Lab 03/09/18 19:19 Sodium 137 Potassium 5.6 H Chloride 99 Carbon Dioxide 29 Anion Gap 9 BUN 42.0 H Creatinine 1.9 H GFR Calculation 25 BUN/Creatinine Ratio 22 Glucose 85 Calculated Osmolality 274 Calcium 8.7 Total Bilirubin 0.80 AST 91 H ALT 10 Alkaline Phosphatase 92 Lactate Dehydrogenase 2472 H Troponin I < 0.012 NT-Pro-B Natriuret Pep 1160 H Total Protein 7.0 Albumin 3.4 L Globulin 3.6 Albumin/Globulin Ratio 0.9 L Tumor Markers 03/09/18 03/10/18 19:19 15:25 Carcinoembryonic Ag 191.00 H CA 19-9 Antigen 94 H CA 125 Antigen 2290 H 03/11/18 05:07 03/11/18 05:07 - Radiology Radiology: Date of Exam: 03/09/18 Type of Exam: CT chest/abd/pelvis wo con Findings: Chest: Moderate right pleural effusion with compressive atelectasis of the right lower lobe. 4 mm right upper lobe nodule on #18 is noncalcified. Calcified granuloma in the right middle lobe. Noncalcified right middle lobe nodule inferiorly on axial image #44 measuring 1 cm in diameter. Nodule near the left heart border in the lingula on axial image number 32 measuring 0.8 cm in diameter. Left lower lobe atelectasis with a small left pleural effusion. No pneumothorax. The central airways are patent. No axillary adenopathy. There is anterior mediastinal adenopathy seen with the largest on axial image #25 measuring 2 cm in short axis. Additional lymph nodes in the right cardiophrenic angle measuring up to 2.8 cm in short axis. Heart size is normal. Large posterior diaphragmatic defect with an intrathoracic stomach. Abdomen/pelvis: Evaluation is limited without IV contrast. There is a small amount of perihepatic ascites. The spleen is normal in size. The pancreas are atrophic and fatty replaced with minimal visible pancreatic tissue. Portions of it are herniated into the chest. Right adrenal mass measuring 3.4 cm in diameter with an attenuation of 38 Hounsfield units. Left adrenal gland is grossly normal. The kidneys are unremarkable. There is extensive mesenteric and omental metastatic disease which is difficult to separate from bowel on this study given the lack of oral and IV contrast. There are clustered nodes adjacent to the pyloric region of the stomach. Central mesenteric nodes measure up to 2.6 cm in short axis on axial image #60. Numerous omental nodules are seen in the left ventral abdomen. Previously biopsied nodule is seen within a fat-containing periumbilical hernia. There is a right lower abdominal hernia which contains portions of the colon and additional abnormal soft tissue probably representing mass measuring up to 8.2 cm in diameter. No evidence of a bowel obstruction. Enlarged left inguinal lymph nodes as well. Bladder is normal. Moderate free pelvic fluid partially obscuring the uterus. Surgical clips in the pelvis with anastomosis in the sigmoid colon region. No bowel obstruction. Bone windows show degenerative change in scoliosis in the spine. No obvious lytic or blastic bony lesions. Impression: 1. Extensive metastatic disease with a possible malignant right pleural effusion. Mediastinal, omental, mesenteric and pelvic jessica metastatic disease. 2. Right adrenal mass possibly representing a metastasis. 3. Ascites History of Present Illness HPI: Tiffanie is a frail, 82-year-old female who presents today and direct admission from [facility] in [place]. Within the last 6 weeks, she has undergone imaging which did reveal extensive lymphadenopathy and diffuse masses concerning for possible lymphoma. She was referred to Dr. Solis for further evaluation. She underwent biopsy by Dr. Goldsmith at [facility] of an abdominal mass and 03/02/2018. 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 Flow cytometry was negative for lymphoma, but final staining remains pending. Again, patient is here today to be admitted. She reports that she was attempting to change the toilet paper roll at home, and fell off of the toilet. He did hit her head, and her low back. Her was present, and called the daughter to come and help her up. Upon responding, the daughter did decide to call EMS, and she was taken to [facility] in [place] for further evaluation. Lab and CT of the head was done. CT was negative. I do not have labs available to me. Patient does demonstrate ongoing shortness of air, intra-abdominal distention, and overall not doing well. Again, she has been transferred for further evaluation and specialist consultation. Patient reports that overall she has not been feeling well. She has had progressive dyspnea, and her reports that she had severe difficulty breathing last night. She has been using nebulizer treatments more frequently to try to help with her shortness of air. She has had ongoing abdominal swelling. Some intermittent lower extremity edema. She appears fairly cachectic , but her daughter reports that she gained weight in December. Patient has not been eating much, reports eating primarily some mashed potatoes or other small amounts of food. She does endorse a decreased appetite, early satiety, and frequent nausea. She does not specifically endorse vomiting. She does have dysphagia, with feelings of food being stuck immediately in her throat. She also is having difficulty with pill dysphagia, but attributes this to "runs in my family". She denies any history of coronary artery disease or heart failure. She has had multiple surgeries and medical conditions which will be detailed in history of present illness. I did discuss with her her CODE STATUS today. She desires to be a full code. Her and daughter are at bedside, and she and the family reports they believe she may have a DURABLE POWER OF GAGE MAKER. I have encouraged her to be sure that she is established that the paperwork has not been done to that effect. Patient is somewhat reluctant, and states "I have always been told that the bad idea". I did discuss the significance of DPOA and that it would only be enacted if she was unable to make her own decisions. I strongly encouraged her, and her family, once again to consider establishing a DURABLE POWER OF GAGE MAKER for the patient while she is here. She does indicate that she would like her and her daughter to make decisions for her if she were unable to speak for herself. For complete details of the H&P refer to that document. Objective Vital signs: Temperature 97.2 F 03/12/18 08:50 Pulse Rate 107 H 03/12/18 08:50 Respiratory Rate 24 03/12/18 14:32 Blood Pressure 125/62 03/12/18 08:50 Pulse Oximetry 98 03/12/18 14:32 Height/Weight/BMI: Height 1.63 m Weight 73.8 kg Body Mass Index 27.8 Hospital Course This is a general summary of the patient's hospital course. For more details refer to the complete medical record. Hospital course: 03/09/18 Initially planned OBS status, but with extensive anasarca from underlying cancer coupled with DARY/Hyperkalemia and dyspnea/effusion will change to inpatient. Anticipate greater than 2 midnights of care needed. Will assess labs now, as we do not have those performed at outlying facility available. Also assess troponin, BNP now as patient is short of air and demonstrating significant anxiety despite normal O2 sats. Get CT chest abdomen and pelvis due to known malignancy and concern for rapid progression. Will avoid contrast due to underlying chronic kidney disease. Consult Dr. Aceves in the morning for further evaluation as Dr. Solis is out of town. Check CEA now, LDH for baseline. Get EKG. Telemetry. Check Echo in AM. We'll provide Lasix 40 mg IV 1 now. Hold further diuresis until we get labs back. Suspect that she will need ongoing significant IV diuresis due to the significance of anasarca. She is quite short of air, and is asking for oxygen. I do suspect she has significant underlying pleural effusion. Discussed this with nursing staff, will allow oxygen to be given for symptomatic relief. She is quite malnourished. She has been made nothing by mouth tonight until we get her CT scan back. Likely need to add nutritional supplements to help augment her oral intake. Malnutrition is likely worsening her generalized ascites and 3rd spacing. Will provide when necessary Compazine, and she is listing allergy to Zofran. She reports prior history of left lower extremity DVT, and has been on warfarin since then. Unclear if she was tested for clotting disorder, or if this was was provoked or recurrent. We'll check INR now, and further address her warfarin needs in the morning. Hold Warfarin this evening due to fall and possible surgical procedures. CT of the head done in [place] was negative for acute intracranial hemorrhage. Continue PPI for history of GERD, large hiatal hernia. Progressive dysphasia is concerning for increasing hiatal lymphadenopathy. I did discuss code status and DPOA with her. We will need to follow up on this, as I suspect her prognosis is very guarded. Care to return to Dr Powell at time of [place] [facility] [place]. 03/10/18 CT obtained yesterday is very concerning for diffuse malignancy. Likely GI source. CEA is elevated, LDH is quite elevated. Consult to Dr. Aceves pending. Only treatment would likely be palliative, and uncertain if even that would be helpful given extensive abdominal tumor burden. Patient does endorse a history of hyst, but ovaries were left intact. She also has sense of fullness with sitting, unclear if that is mass related or due to ascites. Echo is pending for possible heart failure. Severe malnutrition coupled with intra-abdominal malignancy is also underlying source for ascites. Bilateral pleural effusions ongoing. We could consider a therapeutic tap for comfort if needed. Continue supportive oxygen. Serum potassium is improving, serum creatinine is trending down. Urban was placed due to patient's difficulty and using bedside commode and bedpan. Will stop IVF. Continue diuresis to help continue to normalize potassium as well as creatinine. We'll continue to hold warfarin for now telemetry can further determine a plan of care. Use SCDs for DVT prophylaxis. Vitamin K 10mg X1 to low INR due to potential thoracentesis. There is concern for possible gastric outlet obstruction, she has a known very large hiatal hernia. Continue PPI. Dr. Jonas has been consulted. Patient may need EGD for further diagnosis. Will be high risk for any sedated procedure. Discussed about possible thoracentesis for therapeutic purposes. Continue with MS as needed for pain. Will add lorazepam as needed. Overall she, she continues to appear very ill. I believe her overall prognosis is likely very grave. She remains a full code at her request. Have encouraged her to establish a medical DURABLE POWER OF GAGE MAKER. Don't believe that she could safely return home. Her is very frail and elderly, and could not care for her at home. We'll further address when we have a more determine plan of care. 03/11/16 Patient not desiring thoracentesis. No surgical intervention recommended by Dr Jonas. Will discuss with Dr Aceves about chemo recommendations - when we spoke yesterday he didn't feel palliative treatment beneficial. Discussed about possible hospice. Patient would need increase help at home, not wanting correction. Likely would need private pay nursing. Will stop IV Lasix - do not feel will help decrease effusion. Will stop PT/OT as not indicated. Continue with pain/nausea/symptom control. 1335 Discussed with patient's daughter about care plans. In discussion with Dr Parrish, no chemo recommendations. Comfort measures. Family would like [facility]. Do not want correction care-will get additional family members in to help with care needs. Discussed about Code Status. Resuscitative effort would be futile. Daughter reports pt would still like full code at this time. Continue dialog. Will had CM make arrangements for meeting with [facility]. Will also provide information about additional private pay nursing care if needs arise. Likely discharge to home if care arrangements can be made. 03/12/18 Patient and family have opted for [facility] for hospice care. Condition is terminal. Terminal diagnosis is metastatic poorly differentiated carcinoma of unknown source. Life expectancy days to weeks. Hospice getting necessary equipment set up at home. Will discharge to home of hospice today. Diet as patient tolerates. Activities as patient tolerates. Will continue with Urban to dependent drainage for comfort measure. May stop Coumadin, Zocor, Synthroid, and supplements. Hospice recommends Roxanol 20mg/ml 0.25 to 1ml SL q 1 hour prn pain/air hunger Lorazepam 0.5mg SL q 4 hours prn anxiety/agitation/air hunger Levsin 0.125mg SL q 2 hours prn secretions. Will change home tramadol to 100mg po TID - may have 2 additional tablets daily if needed. (Max 8 tables in 24 hours). Change Lasix to 40mg daily prn edema - patient to take potassium only if taking Lasix. O2 for comfort measures. [facility] will initiate care upon patient's return to home. See orders for details. Time spent with patient: discharge greater than 30 minutes Resuscitation Status: Full Code Discharge Plan - Discharge Disposition Discharge Date: 03/12/18 Disposition: 50 Discharged To Hospice-Home *Condition: Stable Reason For Visit (Visit label in EMR): Hyperkalemia, Dyspnea, Acute renal failure - Discharge Medications *Discharge Medications: New Hyoscyamine [Levsin] 0.125 mg PO Q2HR PRN #30 tab PRN Reason: Secretions RX: LORazepam [Ativan] 0.5 mg PO Q4H PRN #30 tab PRN Reason: Anxiety/Air Hunger/Agitation RX: Promethazine Supp [Phenergan Supp] 25 mg [place] Q6HR PRN #20 suppositor PRN Reason: Nausea RX: Tramadol [Ultram] 100 mg PO TID tab Morphine Sulfate Oral Liq [Roxanol Oral Liq] 0.25 - 1 ml SL Q1H PRN #30 ml PRN Reason: pain/air hunger Continue RX: Albuterol Neb (0.083%) [Proventil Neb (0.083%)] 1 vial IH Q4-6HPRN PRN PRN Reason: Shortness Of Air RX: Promethazine HCl 25 mg PO Q6H PRN PRN Reason: Nausea &/Or Vomiting RX: Pantoprazole Sodium [Protonix] 1 tab PO ACB RX: Gabapentin 300 mg PO QID RX: Albuterol HFA Inhaler [Ventolin Hfa 90 mcg/actuation] 2 puff INH Q6H Changed RX: Furosemide [Lasix] 40 mg PO DAILY PRN #0 PRN Reason: Edema RX: Potassium Chloride 20 meq PO DAILY PRN #0 PRN Reason: When taking Lasix (furosemide) Discontinued RX: Atenolol [Tenormin] 1 tab PO DAILY Warfarin Sodium [Coumadin] 3 mg PO DAILY RX: Levothyroxine Tab [Synthroid] 1 tab PO DAILY Lovastatin 20 mg PO HS No Action Tramadol HCl [Ultram] 50 - 100 mg PO TID PRN PRN Reason: Pain - Discharge Packet/Instructions *Diet: As tolerated *Activity: As tolerated *Pain Management/Treatment: Hospice will help adjust pain medications *Wound Care: n/a *Expected Signs/Symptoms: Symptom control with hospice interventions *Notify Physician if: Pain/symptoms not well controlled. *During Business Hours Contact: [facility] *After Business Hours Contact: [facility] *Pending Lab/Results: No Pending Lab - Referrals/Follow Up *Referrals/Follow Up: Aster Batres MD [Primary Care Provider] - (As needed) - Patient Handouts Patient Handouts: Hyperkalemia (GEN) - Dismissal Complete Discharge Instructions are:: Complete Physician Narrative - Narrative Physician: Sergio Gomez MD Attestation Narrative: Date: 03/12/18 Time: [id number] I have independently interviewed and examined patient prior to discharge. See my progress note for details. Medically stable to discharge home with hospice.
[2018-03-12] MEDS ORDERED: TRAMADOL 50 MG TABLET PO SCH (15:00)
== END 2018-03-12 16:15 | disposition hospice, home (50) | DRG 845 ==
LOC: MED
PROVIDERS: ADMIT Hospitalist; ATTEND Hospitalist